=== PATIENT | female | born 1960 | race Caucasian/White ===

== ENCOUNTER 2018-04-24 05:59 | Outpatient (CLI) | payer MEDICARE, MEDICAID, SELFPAY ==
[2018-04-24 13:36] LABS: Anion Gap 1.5 mmol/L (3-11); BUN 8 mg/dL (7-18); CO2 33.5 mmol/L (21.0-32.0); CREATININE 0.78 mg/dL (0.55-1.02); Calcium 8.7 mg/dL (8.5-10.1); Chloride 101 mmol/L (98-107); Cholesterol 205 mg/dL (50-200); Glucose 326 mg/dL (70-100); HDL Cholesterol 58 mg/dL (40-60); LDL CHOLESTEROL 133 mg/dL (<100); Potassium 4.2 mmol/L (3.5-5.1); Sodium 136 mmol/L (136-145); TSH 0.78 uIU/mL (0.358-3.74); Triglyceride 122 mg/dL (30-150)
== END 2018-04-24 06:19 ==
LOC: LBO 08:05 → LOS 08:10
PROVIDERS: PCP Family Medicine; Visit Provider Family Medicine
DX: E03.9 Hypothyroidism, unspecified (principal); E11.49 Type 2 diabetes mellitus with other diabetic neurological complication; E11.65 Type 2 diabetes mellitus with hyperglycemia
CPT/HCPCS: 36415; 80048; 80061; 83721; 84443

== ENCOUNTER 2018-07-16 11:34 | Outpatient (CLI) | payer MEDICARE, MEDICAID, SELFPAY ==
--- NOTE | 2018-07-16 12:43 | DI.US_ITS ---
SYMPTOM/DIAGNOSIS: UNILATERAL SWELLING, RIGHT DUPLEX VENOUS ULTRASOUND, RIGHT LOWER EXTREMITY: 07/16 Duplex evaluation of the deep venous system was performed according to the usual protocol. The deep veins are freely compressible throughout to the level of the popliteal veins. There is normal doppler flow visible throughout and there is excellent flow augmentation with manual calf compression. CONCLUSION: No evidence of deep venous thrombosis.
== END 2018-07-16 11:54 ==
PROVIDERS: PCP Family Medicine
DX: R22.41 Localized swelling, mass and lump, right lower limb (principal); M79.89 Other specified soft tissue disorders
CPT/HCPCS: 36415; 80048; 83036; 93971

== ENCOUNTER 2018-07-16 12:48 | Outpatient (CLI) | payer MEDICARE, MEDICAID, SELFPAY ==
[2018-07-16 14:14] LABS: Hemoglobin A1C 10.5 % (4.5-6.2)
[2018-07-16 14:44] LABS: Anion Gap 5.2 mmol/L (3-11); BUN 10 mg/dL (7-18); CO2 31.8 mmol/L (21.0-32.0); CREATININE 0.72 mg/dL (0.55-1.02); Calcium 8.7 mg/dL (8.5-10.1); Chloride 99 mmol/L (98-107); Glucose 303 mg/dL (70-100); Potassium 4.2 mmol/L (3.5-5.1); Sodium 136 mmol/L (136-145)
== END 2018-07-16 13:08 ==
PROVIDERS: PCP Family Medicine; Visit Provider Family Medicine
DX: E11.9 Type 2 diabetes mellitus without complications (principal)
CPT/HCPCS: 36415; 80048; 83036; 93971

== ENCOUNTER 2018-08-05 00:44 | Outpatient (CLI) | payer MEDICARE, MEDICAID, SELFPAY ==
--- NOTE | 2018-08-05 13:13 | DI.MAMMO_ITS ---
SYMPTOM/DIAGNOSIS: SCREENING, Z12.31 MAMMOGRAMS: Mammograms were interpreted according to the usual protocol including computer analysis with CAD system, tomosynthesis and C view imaging. Comparison is made with exams from [id number]. The breasts are composed of fatty density tissue. No suspicious masses or suspicious microcalcifications are seen. There has been no significant change. IMPRESSION: Category 1A, negative mammogram. Yearly screening mammography is recommended. [facility] ASSESSMENT OF FINDINGS: Negative. Category 1. Patient will receive a letter notifying them of these results. BI-RAD category A. The breasts are almost entirely fatty.
== END 2018-08-05 01:04 ==
PROVIDERS: PCP Family Medicine; Visit Provider Family Medicine
DX: Z12.31 Encounter for screening mammogram for malignant neoplasm of breast (principal)
CPT/HCPCS: 77063; 77067

== ENCOUNTER 2018-08-05 00:51 | Outpatient (CLI) | payer MEDICARE, MEDICAID, SELFPAY ==
--- NOTE | 2018-08-05 12:16 | DI.RAD_ITS ---
SYMPTOMS/DIAGNOSIS: 6 WEEKS SEVERE PAIN/SWELLING, RIGHT LOWER LEG, M79.604 RIGHT LEG: AP and lateral projections are provided. Soft tissue prominence is noted over the leg. No focal mass is seen. The bony structures are normally mineralized. There is no evidence of an acute fracture or dislocation. There are degenerative changes involving the knee and ankle. SUMMARY: Findings consistent with edema and/or cellulitis involving the lower leg. There is no acute bony or joint abnormality.
--- NOTE | 2018-08-05 15:10 | DI.VRAD_ITS ---
EXAM: XR Right Tibia and Fibula, 2 Views EXAM DATE/TIME: 08/05/2018 12:28 PM CLINICAL HISTORY: 57 years old, female; Pain; Other: RT tib fib; Patient HX: 6 wks severe pain/swelling RT lower leg TECHNIQUE: XR Right tibia and fibula 2 views COMPARISON: US RIGHT EXTREMITY ULTRASOUND 03/05/2016 8:20 AM FINDINGS: Bones/joints: There is no evidence of acute fracture. No dislocation.There is no evidence of bone destruction, erosion or periosteal reaction. Soft tissues: No soft tissue gas densities are identified.There is no evidence of a radiopaque foreign body. Vasculature: The vasculature demonstrates diffuse marked atherosclerotic calcification. IMPRESSION: No acute bone or soft tissue abnormality. Dictated and Authenticated by: Lucy Spears MD. Ordering:RUDI Barillas MD
== END 2018-08-05 01:11 ==
PROVIDERS: PCP Family Medicine; Visit Provider Family Medicine
DX: M79.604 Pain in right leg (principal); Z12.31 Encounter for screening mammogram for malignant neoplasm of breast; R60.0 Localized edema; M79.89 Other specified soft tissue disorders; M17.11 Unilateral primary osteoarthritis, right knee
CPT/HCPCS: 77063; 77067; 73590

== ENCOUNTER 2018-10-09 00:29 | Outpatient (CLI) | payer MEDICARE, MEDICAID, SELFPAY ==
--- NOTE | 2018-10-09 14:09 | MERGE_ITS ---
*[facility]* *[facility]* [address] [place] [address] Date of study: 10/09/2018 Transthoracic Echocardiography M-mode, complete 2D, complete spectral Doppler, and color Doppler *STUDY CONCLUSIONS* Summary: 1. Left ventricle: The cavity size was normal. There was mild focal basal hypertrophy of the septum. Systolic function was normal. The estimated ejection fraction was 55-60%. Wall motion was normal; there were no regional wall motion abnormalities. 2. Aortic valve: Transvalvular velocity was minimally increased. There was very mild stenosis. Valve area (VTI): 1.8cm^2. Valve area (Vmax): 1.8cm^2. Valve area (Vmean): 1.7cm^2. 3. Right ventricle: The cavity size was normal. Wall thickness was normal. Systolic function was normal. *PATIENT PRESENTATION* Height: 162.6cm ((64in) ) S/D Pressure: 130 / 64 Weight: 99.8kg ((219.5lb) ) BSA: 2.17m^2 Test start time: 02:10 PM. Test stop time: 03:00 PM. PERFORMING Unknown ORDERING Eran Desir REFERRING Eran Desir PERFORMING [facility] [employer]PERVIS[employer] Agueda Partida *PROCEDURE DATA* Procedure information: This study was interpreted by [facility]. Pertinent images and digital data are archived for permanent storage and are available for subsequent review. No prior study was available for comparison. Study status: Routine. Transthoracic echocardiography. M-mode, complete 2D, complete spectral Doppler, and color Doppler. A Transthoracic Echocardiogram was performed. Scanning was performed from the parasternal, apical, subcostal, and suprasternal notch acoustic windows. Images were obtained using an [employer] 2000 cardiac ultrasound machine. Image quality was fair. Study completion: The patient tolerated the procedure well. History: PMH: Dyspnea on exertion *CARDIAC ANATOMY* Left ventricle: The cavity size was normal. There was mild focal basal hypertrophy of the septum. Systolic function was normal. The estimated ejection fraction was 55-60%. Wall motion was normal; there were no regional wall motion abnormalities. Aortic valve: Trileaflet; normal thickness leaflets. Mobility was not restricted. Doppler: Transvalvular velocity was minimally increased. There was very mild stenosis. There was no significant regurgitation. VTI ratio of LVOT to aortic valve: 0.73. Valve area (VTI): 1.8cm^2. Indexed valve area (VTI): 0.8cm^2/m^2. Peak velocity ratio of LVOT to aortic valve: 0.72. Valve area (Vmax): 1.8cm^2. Indexed valve area (Vmax): 0.8cm^2/m^2. Mean velocity ratio of LVOT to aortic valve: 0.66. Valve area (Vmean): 1.7cm^2. Indexed valve area (Vmean): 0.8cm^2/m^2. Mean gradient (S): 6.4mm Hg. Peak gradient (S): 13.1mm Hg. Aorta: Aortic root: The aortic root was normal in size. Ascending aorta: The ascending aorta was normal in size. Mitral valve: Structurally normal valve. Mobility was not restricted. Doppler: Transvalvular velocity was within the normal range. There was no evidence for stenosis. There was no significant regurgitation. Valve area by pressure half-time: 2.7cm^2. Indexed valve area by pressure half-time: 1.3cm^2/m^2. Peak gradient (D): 2.8mm Hg. Left atrium: The atrium was normal in size. Right ventricle: The cavity size was normal. Wall thickness was normal. Systolic function was normal. Pulmonic valve: Doppler: Transvalvular velocity was within the normal range. There was no evidence for stenosis. There was no significant regurgitation. Peak gradient (S): 5.5mm Hg. Tricuspid valve: Structurally normal valve. Doppler: Transvalvular velocity was within the normal range. There was no evidence for stenosis. There was no significant regurgitation. Pulmonary artery: Systolic pressure could not be accurately estimated. Right atrium: The atrium was normal in size. Pericardium: A prominent pericardial fat pad was present. There was no pericardial effusion. Systemic veins: Inferior vena cava: Poorly visualized. Measurements Left ventricle Value Reference LV ID, ED, PLAX 4.5 cm 3.5 - 6.0 LV ID, ES, PLAX 3.4 cm 2.1 - 4.0 LV PW thickness, ED, PLAX 1.1 cm LV end-diastolic volume, 1-p A2C 70 ml LV ejection fraction, 1-p A2C 61 % LV end-diastolic volume, 1-p A4C 119 ml LV ejection fraction, 1-p A4C 58 % LV e', lateral 0.073 m/sec LV E/e', lateral 11 LV e', medial 0.055 m/sec LV E/e', medial 15 LV e', average 0.064 m/sec LV E/e', average 13 Ventricular septum Value Reference IVS thickness, ED, PLAX 1.1 cm LVOT Value Reference LVOT ID, A-P 1.8 cm LVOT area 2.5 cm^2 LVOT peak velocity, S 1.31 m/sec LVOT mean velocity, S 0.79 m/sec LVOT VTI, S 26.1 cm LVOT peak gradient, S 6.8 mm Hg LVOT mean gradient, S 3 mm Hg Stroke volume (SV), LVOT DP 66 ml Stroke index (SV/bsa), LVOT DP 30 ml/m^2 Aortic valve Value Reference Aortic valve peak velocity, S 1.8 m/sec Aortic valve mean velocity, S 1.19 m/sec Aortic valve VTI, S 36.0 cm Aortic mean gradient, S 6.4 mm Hg Aortic peak gradient, S 13.1 mm Hg VTI ratio, LVOT/AV 0.73 Aortic valve area, VTI 1.8 cm^2 Velocity ratio, peak, LVOT/AV 0.72 Aortic valve area, peak velocity 1.8 cm^2 Velocity ratio, mean, LVOT/AV 0.66 Aortic valve area, mean velocity 1.7 cm^2 Aortic valve area/bsa, mean velocity 0.8 cm^2/m^2 Aorta Value Reference Aortic root ID, ED 3.0 cm Ascending aorta ID, A-P, S 3.2 cm Left atrium Value Reference LA ID, A-P, ES 3.9 cm LA ID/bsa, A-P 1.8 cm/m^2 <=2.2 LA area, ES, A4C 15.5 cm^2 8.8 - 23.4 LA area, ES, A2C 17 cm^2 LA volume/bsa, S 25 ml/m^2 LA volume, ES, 2-p 48 ml LA volume/bsa, ES, 2-p 22 ml/m^2 LA/aortic root ratio 1.31 Mitral valve Value Reference Mitral E-wave peak velocity 0.84 m/sec Mitral A-wave peak velocity 0.85 m/sec Mitral deceleration time (H) 278 ms 150 - 230 Mitral pressure half-time 81 ms Mitral peak gradient, D 2.8 mm Hg Mitral E/A ratio, peak 0.98 Mitral valve area, PHT, DP 2.7 cm^2 Pulmonic valve Value Reference Pulmonic peak gradient, S 5.5 mm Hg Legend: (L) and (H) gomez values outside specified reference range. I have personally reviewed the images and have reviewed and edited the reported findings. Electronically signed by Farhad Sanchez 10/11/2018 12:29
== END 2018-10-09 00:49 ==
PROVIDERS: PCP Family Medicine; Visit Provider Family Medicine
DX: R06.09 Other forms of dyspnea (principal); R60.0 Localized edema; I35.0 Nonrheumatic aortic (valve) stenosis; I10 Essential (primary) hypertension; J44.9 Chronic obstructive pulmonary disease, unspecified
CPT/HCPCS: 93306

== ENCOUNTER 2018-11-20 02:56 | Outpatient (CLI) | payer MEDICARE, MEDICAID, SELFPAY ==
[2018-11-20 13:11] LABS: Hemoglobin A1C 11.9 % (4.5-6.2)
[2018-11-20 13:15] LABS: Anion Gap 6.2 mmol/L (3-11); BUN 9 mg/dL (7-18); CO2 32.8 mmol/L (21.0-32.0); CREATININE 0.84 mg/dL (0.55-1.02); Calcium 8.7 mg/dL (8.5-10.1); Chloride 98 mmol/L (98-107); Glucose 334 mg/dL (70-100); Potassium 4.6 mmol/L (3.5-5.1); Sodium 137 mmol/L (136-145)
== END 2018-11-20 03:16 ==
PROVIDERS: PCP Family Medicine; Visit Provider Family Medicine
DX: I10 Essential (primary) hypertension (principal); R60.9 Edema, unspecified
CPT/HCPCS: 36415; 80048; 83036

== ENCOUNTER 2018-12-14 21:12 | Emergency (ER) | payer MEDICARE, MEDICAID, SELFPAY ==
[2018-12-14 21:20] VITALS: BP 189/73; PULSE 84; RESP 16; TEMP 36.8; O2SAT 89
--- NOTE | 2018-12-14 21:27 | W.ED.GENAD ---
Discharge Plan Disposition Patient Disposition: HOME Condition: Stable Discharge Details Chief Complaint: Abd Prob Clinical Impression: Constipation Primary Care Provider: Eran Desir ED Provider: Evelio Lomas Home Meds and New Rx's Prescriptions: New Fleet Enema 19-7 gram/118 mL enema 197 ml NH TID PRN PRN (Reason: constipation) Qty: 3192 RF: 0 No Action fluconazole [Diflucan] 150 mg tablet 150 mg PO ONCE Qty: 1 RF: 1 hydrocodone-homatropine 5-1.5 mg/5 mL syrup See Rx Instructions PO Q6H MDD 10 ml PRN (Reason: cough) Qty: 473 RF: 0 oxycodone-acetaminophen 10-325 mg tablet 2 tab PO Q6H PRN MDD 8 tabs Qty: 208 RF: 0 levofloxacin 500 mg tablet 500 mg PO DAILY Qty: 14 RF: 0 Novolog Flexpen U-100 Insulin 100 unit/mL insulin pen 15 unit Sub-Q AC Qty: 3 RF: 0 Basaglar KwikPen U-100 Insulin 100 unit/mL (3 mL) insulin pen 42 unit subcut BID Qty: 6 RF: 5 furosemide 40 mg tablet 40 mg PO DAILY Qty: 90 RF: 3 ipratropium-albuterol [DuoNeb] 3 ML solution for nebulization 3 ml Inhalation QID PRNRF: 0 Futuro Restoring Medium 1 EACH misc 1 ea Miscellaneous DAILY Qty: 4 RF: 0 mupirocin 22 GM ointment Topical BID Qty: 22 RF: 3 blood-glucose meter [OneTouch Ultra2] 1 EACH kit 1 ea Miscellaneous QID Qty: 1 RF: 0 nystatin 1 EACH powder 1 tsp PO QID Qty: 120 RF: 1 fluticasone propion-salmeterol [Advair Diskus] 1 EACH blister with device 1 puff Inhalation BID Qty: 3 RF: 4 levothyroxine [Synthroid] 200 MCG tablet 200 mcg PO DAILY Qty: 90 RF: 3 losartan 100 MG tablet 100 mg PO DAILY Qty: 90 RF: 4 pen needle, diabetic [BD Ultra-Fine Mimi Pen Needle] 1 EACH needle 1 ea Miscellaneous QID Qty: 200 RF: 5 Metoprolol Succinate [Toprol Xl] 100 MG TAB.ER.24H 100 mg PO DAILY Qty: 90 RF: 4 ONETOUCH ULTRA TEST STRIPS 1 EACH strip 1 ea Miscellaneous QID Qty: 200 RF: 4 montelukast [Singulair] 10 MG tablet 10 mg PO DAILY Qty: 90 RF: 4 ondansetron HCl 4 MG tablet 4 mg PO Q8H PRN Qty: 12 RF: 3 cimetidine 200 MG tablet 400 mg PO BID Qty: 180 RF: 3 nystatin (bulk) 1 EACH powder Topical QID Qty: 60 RF: 2 Spiriva with HandiHaler 18 mcg capsule, w/inhalation device 1 cap IH DAILY Qty: 90 RF: 4 levalbuterol tartrate [Xopenex HFA] 45 mcg/actuation HFA aerosol inhaler 1 puff Inhalation Q2H PRN (Reason: shortness of breath or wheezing) Qty: 2 RF: 4 Discharge Instructions Instructions: Constipation (ED) Medical Decision Making 58 yo female on home o2 and is on oral abx for a pna per pt and feels better with regards to her repsiratons, comes in because she cant have a bm. She has been constipated for quite some time and today knows she is impacted so came here. She has no abdominal tenderness or distention on exam so doubt sbo. will attempt disimpaction and reassess I disimpacted a large amount of hard stool, pt feels better. Offered an enema here but wants to do this at home. Return precautions given Differential Diagnosis impaction, sbo, constipation HPI General Mode of arrival: ambulatory. Date/Time Provider Initiated Documentation: 12/14/18 21:26. Limitations to Documentation: no limitations. Information obtained by: patient. History of Present Illness 58 year old F presents to the emergency department with the chief complaint of impacted stool, Patient started experiencing this day(s) (1) and it has been constant. No relieving factors improve symptom(s), No exacerbating factors reported . Patient did receive the following treatments prior to arrival, none Related Data Home Medications Medication Instructions Recorded Confirmed ipratropium-albuterol [DuoNeb] 3 ml INHALATION QID PRN 10/22/12 12/11/18 Futuro Restoring Medium #4 ea 07/09/16 12/11/18 mupirocin 0 TOPICAL BID #22 g 01/19/17 04/26/19 blood-glucose meter [Onetouch #1 kit 10/20/17 12/11/18 Ultra2] nystatin 1 tsp PO QID #120 ml 11/10/17 12/11/18 fluticasone propion-salmeterol 1 puff INHALATION BID #3 ea 12/05/17 12/11/18 [Advair 500/50 Diskus] levothyroxine [Synthroid] 200 mcg PO DAILY #90 tab-cap 12/05/17 12/11/18 losartan 100 mg PO DAILY #90 tab-cap 12/05/17 12/11/18 pen needle, diabetic [Bd #200 ea 12/05/17 12/11/18 Ultra-Fine Pen Needle] montelukast [Singulair] 10 mg PO DAILY #90 tab-cap 03/09/18 12/11/18 cimetidine 400 mg PO BID #180 tab 04/10/18 12/11/18 nystatin (bulk) 0 TOPICAL QID #60 g 04/10/18 12/11/18 ondansetron HCl 4 mg PO Q8H PRN #12 tab-cap 04/10/18 12/11/18 tiotropium bromide 18 mcg capsule 1 cap IH DAILY #90 inh 04/28/18 12/11/18 with inhalation device insulin aspart U- 100 100 unit/mL 15 unit SUB-Q AC #3 box 08/28/18 12/11/18 subcutaneous pen insulin glargine (U-100) 100 42 unit SUBCUT BID #6 ml 08/28/18 12/11/18 unit/mL (3 mL) subcutaneous pen furosemide 40 mg tablet 40 mg PO DAILY #90 tab 11/19/18 12/11/18 levalbuterol HFA 45 mcg/actuation 1 puff INHALATION Q2H PRN #2 device 11/24/18 12/11/18 aerosol inhaler fluconazole 150 mg tablet 150 mg PO ONCE #1 tab 12/04/18 12/11/18 hydrocodone-homatropine 5 mg-1.5 See Rx Instructions PO Q6H PRN 12/04/18 12/11/18 mg/5 mL oral syrup #473 ml MDD 10 ml levofloxacin 500 mg tablet 500 mg PO DAILY #14 tab 12/11/18 12/11/18 oxycodone-acetaminophen 10 mg-325 2 tab PO Q6H PRN #208 tab-cap MDD 12/11/18 12/11/18 mg tablet 8 tabs sodium phosphates [Fleet Enema] 197 ml NH TID PRN PRN #3192 ml 12/14/18 Previous Rx's Medication Instructions Recorded blood-glucose meter [Onetouch #1 kit 10/20/17 Ultra2] nystatin 1 tsp PO QID #120 ml 11/10/17 fluticasone propion-salmeterol 1 puff INHALATION BID #3 ea 12/05/17 [Advair 500/50 Diskus] levothyroxine [Synthroid] 200 mcg PO DAILY #90 tab-cap 12/05/17 losartan 100 mg PO DAILY #90 tab-cap 12/05/17 pen needle, diabetic [Bd #200 ea 12/05/17 Ultra-Fine Pen Needle] montelukast [Singulair] 10 mg PO DAILY #90 tab-cap 03/09/18 cimetidine 400 mg PO BID #180 tab 04/10/18 ondansetron HCl 4 mg PO Q8H PRN #12 tab-cap 04/10/18 tiotropium bromide 18 mcg capsule 1 cap IH DAILY #90 inh 04/28/18 with inhalation device insulin aspart U- 100 100 unit/mL 15 unit SUB-Q AC #3 box 08/28/18 subcutaneous pen insulin glargine (U-100) 100 42 unit SUBCUT BID #6 ml 08/28/18 unit/mL (3 mL) subcutaneous pen furosemide 40 mg tablet 40 mg PO DAILY #90 tab 11/19/18 levalbuterol HFA 45 mcg/actuation 1 puff INHALATION Q2H PRN #2 device 11/24/18 aerosol inhaler fluconazole 150 mg tablet 150 mg PO ONCE #1 tab 12/04/18 hydrocodone-homatropine 5 mg-1.5 See Rx Instructions PO Q6H PRN 12/04/18 mg/5 mL oral syrup #473 ml MDD 10 ml levofloxacin 500 mg tablet 500 mg PO DAILY #14 tab 12/11/18 oxycodone-acetaminophen 10 mg-325 2 tab PO Q6H PRN #208 tab-cap MDD 12/11/18 mg tablet 8 tabs sodium phosphates [Fleet Enema] 197 ml NH TID PRN PRN #3192 ml 12/14/18 Allergies Allergy/AdvReac Type Severity Reaction Status Date / Time cefaclor Allergy Wheezing Verified 12/11/18 13:11 lovastatin Allergy Verified 12/11/18 13:11 shellfish derived Allergy Verified 12/11/18 13:11 budesonide [From Symbicort] AdvReac Severe Verified 12/11/18 13:11 clindamycin AdvReac Severe SWELLING, Verified 12/11/18 13:11 GI UPSET, BLOATING doxycycline AdvReac Severe Nausea, Verified 12/11/18 13:11 vomiting, diarrhea formoterol fumarate AdvReac Severe Verified 12/11/18 13:11 [From Symbicort] ibuprofen AdvReac Severe Gastro Verified 12/11/18 13:11 upset, bleeding simvastatin AdvReac Severe MYALGIAS Verified 12/11/18 13:11 gabapentin AdvReac Intermediate Drowsiness Verified 12/11/18 13:11 adhesive AdvReac Skin Rash Verified 12/11/18 13:11 cyclobenzaprine AdvReac Verified 12/11/18 13:11 sulfamethoxazole AdvReac EDEMA Verified 12/11/18 13:11 [From Bactrim] trimethoprim [From Bactrim] AdvReac EDEMA Verified 12/11/18 13:11 General Stated Complaint: Abd Prob LIVIA: 3 Review of Systems Review of Systems All systems reviewed & are unremarkable except as noted in HPI and below Constitutional Denies chills, Denies fever(s) and Denies weakness Cardiovascular Denies chest pain Gastrointestinal Denies vomiting Genitourinary Denies dysuria Musculoskeletal Denies joint swelling Integumentary/Breasts Denies rash Neurologic Denies weakness Endocrine Denies heat intolerance PFSH Medical History Fracture of left radius and ulna (Resolved) Pap smear of cervix with ASCUS, cannot exclude 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 Sister No problems noted. Brother Diabetes Heart disease Brother Diabetes Heart disease Asthma Brother No problems noted. Brother No problems noted. Grandfather Diabetes Vascular disease Grandfather Diabetes Neoplasm Grandmother Dementia Leukemia Neoplasm Grandmother CHF (congestive heart failure) Son No problems noted. Son No problems noted. 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) Exam Const General: no acute distress Orientation: alert HENMT Head: normal to inspection Ears: external ears normal General nose exam: external nose normal Mouth: moist mucous membranes Eyes General: appearance normal, both eyes and all related structures Neck Neck: normal visual inspection Resp Effort & Inspection: normal respiratory effort and able to speak in complete sentences Cardio Rate: regular rate Skin General skin exam: no rashes or lesions noted Neuro General: alert and oriented x3 Extrem General: normal to inspection Psych Mental Status: mental status grossly normal Course Vital Signs Temperature 36.8 C 12/14/18 21:20 Pulse 84 12/14/18 21:20 Respiratory Rate 16 12/14/18 21:20 Blood Pressure 189/73 H 12/14/18 21:20 Pulse Oximetry 89 L 12/14/18 21:20 Temperature 36.8 C 12/14/18 21:20 Temperature Source Temporal Artery Scan 12/14/18 21:20 Pulse 84 12/14/18 21:20 Respiratory Rate 16 12/14/18 21:20 Blood Pressure 189/73 H 12/14/18 21:20 Pulse Oximetry 89 L 12/14/18 21:20 Oxygen Delivery Method Nasal Cannula 12/14/18 21:20 Oxygen Flow Rate 3 12/14/18 21:20 Pain Level 6 12/14/18 21:20
--- NOTE | 2018-12-14 21:33 | ED.GENADUL_ITS ---
Discharge Plan Disposition Patient Disposition: HOME Condition: Stable Discharge Details Chief Complaint: Abd Prob Clinical Impression: Constipation Primary Care Provider: Eran Desir ED Provider: Evelio Lomas Home Meds and New Rx's Prescriptions: New Fleet Enema 19-7 gram/118 mL enema 197 ml [place] TID PRN PRN (Reason: constipation) Qty: 3192 RF: 0 No Action fluconazole [Diflucan] 150 mg tablet 150 mg PO ONCE Qty: 1 RF: 1 hydrocodone-homatropine 5-1.5 mg/5 mL syrup See Rx Instructions PO Q6H MDD 10 ml PRN (Reason: cough) Qty: 473 RF: 0 oxycodone-acetaminophen 10-325 mg tablet 2 tab PO Q6H PRN MDD 8 tabs Qty: 208 RF: 0 levofloxacin 500 mg tablet 500 mg PO DAILY Qty: 14 RF: 0 Novolog Flexpen U-100 Insulin 100 unit/mL insulin pen 15 unit Sub-Q AC Qty: 3 RF: 0 Basaglar KwikPen U-100 Insulin 100 unit/mL (3 mL) insulin pen 42 unit subcut BID Qty: 6 RF: 5 furosemide 40 mg tablet 40 mg PO DAILY Qty: 90 RF: 3 ipratropium-albuterol [DuoNeb] 3 ML solution for nebulization 3 ml Inhalation QID PRNRF: 0 Futuro Restoring Medium 1 EACH misc 1 ea Miscellaneous DAILY Qty: 4 RF: 0 mupirocin 22 GM ointment Topical BID Qty: 22 RF: 3 blood-glucose meter [OneTouch Ultra2] 1 EACH kit 1 ea Miscellaneous QID Qty: 1 RF: 0 nystatin 1 EACH powder 1 tsp PO QID Qty: 120 RF: 1 fluticasone propion-salmeterol [Advair Diskus] 1 EACH blister with device 1 puff Inhalation BID Qty: 3 RF: 4 levothyroxine [Synthroid] 200 MCG tablet 200 mcg PO DAILY Qty: 90 RF: 3 losartan 100 MG tablet 100 mg PO DAILY Qty: 90 RF: 4 pen needle, diabetic [BD Ultra-Fine Mimi Pen Needle] 1 EACH needle 1 ea Miscellaneous QID Qty: 200 RF: 5 Metoprolol Succinate [Toprol Xl] 100 MG TAB.ER.24H 100 mg PO DAILY Qty: 90 RF: 4 ONETOUCH ULTRA TEST STRIPS 1 EACH strip 1 ea Miscellaneous QID Qty: 200 RF: 4 montelukast [Singulair] 10 MG tablet 10 mg PO DAILY Qty: 90 RF: 4 ondansetron HCl 4 MG tablet 4 mg PO Q8H PRN Qty: 12 RF: 3 cimetidine 200 MG tablet 400 mg PO BID Qty: 180 RF: 3 nystatin (bulk) 1 EACH powder Topical QID Qty: 60 RF: 2 Spiriva with HandiHaler 18 mcg capsule, w/inhalation device 1 cap IH DAILY Qty: 90 RF: 4 levalbuterol tartrate [Xopenex HFA] 45 mcg/actuation HFA aerosol inhaler 1 puff Inhalation Q2H PRN (Reason: shortness of breath or wheezing) Qty: 2 RF: 4 Discharge Instructions Instructions: Constipation (ED) Medical Decision Making 58 yo female on home o2 and is on oral abx for a pna per pt and feels better with regards to her repsiratons, comes in because she cant have a bm. She has been constipated for quite some time and today knows she is impacted so came here. She has no abdominal tenderness or distention on exam so doubt sbo. will attempt disimpaction and reassess I disimpacted a large amount of hard stool, pt feels better. Offered an enema here but wants to do this at home. Return precautions given Differential Diagnosis impaction, sbo, constipation HPI General Mode of arrival: ambulatory . Date/Time Provider Initiated Documentation: 12/14/18 21:26 . Limitations to Documentation: no limitations . Information obtained by: patient . History of Present Illness 58 year old F p resents to the emergency department with the chief complaint of impacted stool, Patient started experiencing this day(s) (1) and it has been constant. No relieving factors improve symptom(s), No exacerbating factors reported . Patient did receive the following treatments prior to arrival, none Related Data Home Medications Medication Instructions Recorded Confirmed ipratropium-albuterol [DuoNeb] 3 ml INHALATION QID PRN 10/22/12 12/11/18 Futuro Restoring Medium #4 ea 07/09/16 12/11/18 mupirocin 0 TOPICAL BID #22 g 09/05/16 12/11/18 blood-glucose meter [Onetouch #1 kit 10/20/17 12/11/18 Ultra2] nystatin 1 tsp PO QID #120 ml 11/10/17 12/11/18 fluticasone propion-salmeterol 1 puff INHALATION BID #3 ea 12/05/17 12/11/18 [Advair 500/50 Diskus] levothyroxine [Synthroid] 200 mcg PO DAILY #90 tab-cap 12/05/17 12/11/18 losartan 100 mg PO DAILY #90 tab-cap 12/05/17 12/11/18 pen needle, diabetic [Bd #200 ea 12/05/17 12/11/18 Ultra-Fine Pen Needle] montelukast [Singulair] 10 mg PO DAILY #90 tab-cap 03/09/18 12/11/18 cimetidine 400 mg PO BID #180 tab 04/10/18 12/11/18 nystatin (bulk) 0 TOPICAL QID #60 g 04/10/18 12/11/18 ondansetron HCl 4 mg PO Q8H PRN #12 tab-cap 04/10/18 12/11/18 tiotropium bromide 18 mcg capsule 1 cap IH DAILY #90 inh 04/28/18 12/11/18 with inhalation device insulin aspart U- 100 100 unit/mL 15 unit SUB-Q AC #3 box 08/28/18 12/11/18 subcutaneous pen insulin glargine (U-100) 100 42 unit SUBCUT BID #6 ml 08/28/18 12/11/18 unit/mL (3 mL) subcutaneous pen furosemide 40 mg tablet 40 mg PO DAILY #90 tab 11/19/18 12/11/18 levalbuterol HFA 45 mcg/actuation 1 puff INHALATION Q2H PRN #2 device 11/24/18 12/11/18 aerosol inhaler fluconazole 150 mg tablet 150 mg PO ONCE #1 tab 12/04/18 12/11/18 hydrocodone-homatropine 5 mg-1.5 See Rx Instructions PO Q6H PRN 12/04/18 12/11/18 mg/5 mL oral syrup #473 ml MDD 10 ml levofloxacin 500 mg tablet 500 mg PO DAILY #14 tab 12/11/18 12/11/18 oxycodone-acetaminophen 10 mg-325 2 tab PO Q6H PRN #208 tab-cap MDD 12/11/18 12/11/18 mg tablet 8 tabs sodium phosphates [Fleet Enema] 197 ml [place] TID PRN PRN #3192 ml 12/14/18 Previous Rx's Medication Instructions Recorded blood-glucose meter [Onetouch #1 kit 10/20/17 Ultra2] nystatin 1 tsp PO QID #120 ml 11/10/17 fluticasone propion-salmeterol 1 puff INHALATION BID #3 ea 12/05/17 [Advair 500/50 Diskus] levothyroxine [Synthroid] 200 mcg PO DAILY #90 tab-cap 12/05/17 losartan 100 mg PO DAILY #90 tab-cap 12/05/17 pen needle, diabetic [Bd #200 ea 12/05/17 Ultra-Fine Pen Needle] montelukast [Singulair] 10 mg PO DAILY #90 tab-cap 03/09/18 cimetidine 400 mg PO BID #180 tab 04/10/18 ondansetron HCl 4 mg PO Q8H PRN #12 tab-cap 04/10/18 tiotropium bromide 18 mcg capsule 1 cap IH DAILY #90 inh 04/28/18 with inhalation device insulin aspart U- 100 100 unit/mL 15 unit SUB-Q AC #3 box 08/28/18 subcutaneous pen insulin glargine (U-100) 100 42 unit SUBCUT BID #6 ml 08/28/18 unit/mL (3 mL) subcutaneous pen furosemide 40 mg tablet 40 mg PO DAILY #90 tab 11/19/18 levalbuterol HFA 45 mcg/actuation 1 puff INHALATION Q2H PRN #2 device 11/24/18 aerosol inhaler fluconazole 150 mg tablet 150 mg PO ONCE #1 tab 12/04/18 hydrocodone-homatropine 5 mg-1.5 See Rx Instructions PO Q6H PRN 12/04/18 mg/5 mL oral syrup #473 ml MDD 10 ml levofloxacin 500 mg tablet 500 mg PO DAILY #14 tab 12/11/18 oxycodone-acetaminophen 10 mg-325 2 tab PO Q6H PRN #208 tab-cap MDD 12/11/18 mg tablet 8 tabs sodium phosphates [Fleet Enema] 197 ml [place] TID PRN PRN #3192 ml 12/14/18 Allergies Allergy/AdvReac Type Severity Reaction Status Date / Time cefaclor Allergy Wheezing Verified 12/11/18 13:11 lovastatin Allergy Verified 12/11/18 13:11 shellfish derived Allergy Verified 12/11/18 13:11 budesonide [From Symbicort] AdvReac Severe Verified 12/11/18 13:11 clindamycin AdvReac Severe SWELLING, Verified 12/11/18 13:11 GI UPSET, BLOATING doxycycline AdvReac Severe Nausea, Verified 12/11/18 13:11 vomiting, diarrhea formoterol fumarate AdvReac Severe Verified 12/11/18 13:11 [From Symbicort] ibuprofen AdvReac Severe Gastro Verified 12/11/18 13:11 upset, bleeding simvastatin AdvReac Severe MYALGIAS Verified 12/11/18 13:11 gabapentin AdvReac Intermediate Drowsiness Verified 12/11/18 13:11 adhesive AdvReac Skin Rash Verified 12/11/18 13:11 cyclobenzaprine AdvReac Verified 12/11/18 13:11 sulfamethoxazole AdvReac EDEMA Verified 12/11/18 13:11 [From Bactrim] trimethoprim [From Bactrim] AdvReac EDEMA Verified 12/11/18 13:11 General Stated Complaint: Abd Prob LIVIA: 3 Review of Systems Review of Systems All systems reviewed & are unremarkable except as noted in HPI and below Constitutional Denies chills, Denies fever(s) and Denies weakness Cardiovascular Denies chest pain Gastrointestinal Denies vomiting Genitourinary Denies dysuria Musculoskeletal Denies joint swelling Integumentary/Breasts Denies rash Neurologic Denies weakness Endocrine Denies heat intolerance PFSH Medical History Fracture of left radius and ulna (Resolved) Pap smear of cervix with ASCUS, cannot exclude 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 Sister No problems noted. Brother Diabetes Heart disease Brother Diabetes Heart disease Asthma Brother No problems noted. Brother No problems noted. Grandfather Diabetes Vascular disease Grandfather Diabetes Neoplasm Grandmother Dementia Leukemia Neoplasm Grandmother CHF (congestive heart failure) Son No problems noted. Son No problems noted. 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) Exam Const General: no acute distress Orientation: alert HENMT Head: normal to inspection Ears: external ears normal General nose exam: external nose normal Mouth: moist mucous membranes Eyes General: appearance normal, both eyes and all related structures Neck Neck: normal visual inspection Resp Effort & Inspection: normal respiratory effort and able to speak in complete sentences Cardio Rate: regular rate Skin General skin exam: no rashes or lesions noted Neuro General: alert and oriented x3 Extrem General: normal to inspection Psych Mental Status: mental status grossly normal Course Vital Signs Temperature 36.8 C 12/14/18 21:20 Pulse 84 12/14/18 21:20 Respiratory Rate 16 12/14/18 21:20 Blood Pressure 189/73 H 12/14/18 21:20 Pulse Oximetry 89 L 12/14/18 21:20 Temperature 36.8 C 12/14/18 21:20 Temperature Source Temporal Artery Scan 12/14/18 21:20 Pulse 84 12/14/18 21:20 Respiratory Rate 16 12/14/18 21:20 Blood Pressure 189/73 H 12/14/18 21:20 Pulse Oximetry 89 L 12/14/18 21:20 Oxygen Delivery Method Nasal Cannula 12/14/18 21:20 Oxygen Flow Rate 3 12/14/18 21:20 Pain Level 6 12/14/18 21:20
== END 2018-12-14 21:50 | disposition home or self-care (01) ==
PROVIDERS: Emergency Provider Emergency Medicine; PCP Family Medicine
DX: K59.00 Constipation, unspecified (principal); E11.9 Type 2 diabetes mellitus without complications; Z79.4 Long term (current) use of insulin; J44.9 Chronic obstructive pulmonary disease, unspecified; J45.909 Unspecified asthma, uncomplicated; Z99.81 Dependence on supplemental oxygen; Z87.891 Personal history of nicotine dependence; I10 Essential (primary) hypertension
CPT/HCPCS: 99283

== ENCOUNTER 2019-01-29 12:45 | Inpatient (IN) | payer MEDICARE, MEDICAID, SELFPAY ==
[2019-01-29] VITALS (14 sets, daily range): BP systolic 105–160; BP diastolic 53–80; PULSE 61–79; RESP 14–23; TEMP 36.7–37.3; O2SAT 84–94
[2019-01-29 13:26] LABS: Bilirubin Negative (Negative); Blood Trace-lysed (Negative); Clarity Clear; Glucose 100 mg/dL (Negative); Ketones Negative (Negative); Leukocyte Esterase Negative (Negative); Nitrite Negative (Negative); Specific Gravity 1.015 (1.005-1.025); Urobilinogen 0.2 EU/dL (Up TO 0.2)
[2019-01-29 13:29] LABS: Bacteria Few HPF (Negative); C & S Indicated? No; Casts Negative LPF (Negative); Crystals Negative HPF (Negative); Epithelial Cells Many HPF (Negative); Mucus Negative (Negative); WBC Negative HPF (0-5)
[2019-01-29 13:33] LABS: HCO3 (Venous) 33 mmol/L (22-28); O2 Sat (Venous) 68 % (70-80); TCO2 (Venous) 30 mmol/L (22-29); pCO2 (Venous) 49 mm/Hg (34-47); pH (Venous) 7.44 (7.32-7.43); pO2 (Venous) 35 mm/Hg (28-44)
[2019-01-29 13:36] LABS: Lactate-non-spesis 1.2 mmol/l (0.6-1.4)
[2019-01-29 13:41] LABS: Abs Immature Grans 0.02 k/cumm (0.0-0.09); Absolute Basophil Count 0.01 k/cumm (0.0-0.2); Absolute Eosinophil Count 0.09 k/cumm (0.0-0.7); Absolute Lymphocyte Count 1.31 k/cumm (1.2-3.4); Absolute Monocyte Count 0.73 k/cumm (0.11-0.7); Absolute Neutrophil Count 7.33 k/cumm (1.2-6.7); Basophils % 0.1; Eosinophils % 0.9; HCT 40.3 % (36.0-46.0); HGB 13.4 g/dL (12.0-15.5); Immature Grans % 0.2; Lymphocytes % 13.8; Mean Corp. HGB Concentration 33.3 g/dL (32.0-36.0); Mean Corpuscular Hemoglobin 28.2 pg (27.0-33.0); Mean Corpuscular Volume 84.8 fL (80-95); Mean Platelet Volume 8.6 fL (8.0-11.0); Monocytes % 7.7; Neutrophils % 77.3; Platelet Count 244 x1000/uL (130-400); RBC 4.75 m/cumm (4.00-5.20); RBC Distribution Width 13.3 % (11.7-14.6); White Blood Cell Count 9.49 k/cumm (4.4-10.8)
[2019-01-29] MEDS: Albuterol/Ipratropium 3 ML UPD VIAL UPD ×2 (13:43→18:00)
[2019-01-29 13:47] LABS: PTT Activated 21.4 sec (21.0-31.4); Prothrombin Time 9.9 sec (9.3-11.0)
--- NOTE | 2019-01-29 13:58 | ED.GENADUL_ITS ---
Discharge Plan Disposition Patient Disposition: [facility] INPATIENT Condition: Improving Discharge Details Chief Complaint: RespSymp Clinical Impression: COPD (chronic obstructive pulmonary disease), Pneumonia Primary Care Provider: Eran Desir ED Provider: Peng Murphy Home Meds and New Rx's Prescriptions: No Action Novolog Flexpen U-100 Insulin 100 unit/mL insulin pen 15 unit Sub-Q AC Qty: 3 RF: 0 Basaglar KwikPen U-100 Insulin 100 unit/mL (3 mL) insulin pen 42 unit subcut BID Qty: 6 RF: 5 furosemide 40 mg tablet 40 mg PO DAILY Qty: 90 RF: 3 prednisone 20 mg tablet 40 mg PO DAILY Qty: 14 RF: 0 oxycodone-acetaminophen 10-325 mg tablet 2 tab PO Q6H PRN MDD 8 tabs Qty: 207 RF: 0 hydrocodone-homatropine 5-1.5 mg/5 mL syrup See Rx Instructions PO Q6H MDD 10 ml PRN (Reason: cough) Qty: 300 RF: 0 ipratropium-albuterol [DuoNeb] 3 ML solution for nebulization 3 ml Inhalation QID PRNRF: 0 Futuro Restoring Medium 1 EACH misc 1 ea Miscellaneous DAILY Qty: 4 RF: 0 mupirocin 22 GM ointment Topical BID Qty: 22 RF: 3 blood-glucose meter [EyeVerifyuch Ultra2] 1 EACH kit 1 ea Miscellaneous QID Qty: 1 RF: 0 nystatin 1 EACH powder 1 tsp PO QID Qty: 120 RF: 1 fluticasone propion-salmeterol [Advair Diskus] 1 EACH blister with device 1 puff Inhalation BID Qty: 3 RF: 4 levothyroxine [Synthroid] 200 MCG tablet 200 mcg PO DAILY Qty: 90 RF: 3 losartan 100 MG tablet 100 mg PO DAILY Qty: 90 RF: 4 pen needle, diabetic [BD Ultra-Fine Mimi Pen Needle] 1 EACH needle 1 ea Miscellaneous QID Qty: 200 RF: 5 Metoprolol Succinate [Toprol Xl] 100 MG TAB.ER.24H 100 mg PO DAILY Qty: 90 RF: 4 [email or web address] ULTRA TEST STRIPS 1 EACH strip 1 ea Miscellaneous QID Qty: 200 RF: 4 montelukast [Singulair] 10 MG tablet 10 mg PO DAILY Qty: 90 RF: 4 ondansetron HCl 4 MG tablet 4 mg PO Q8H PRN Qty: 12 RF: 3 cimetidine 200 MG tablet 400 mg PO BID Qty: 180 RF: 3 nystatin (bulk) 1 EACH powder Topical QID Qty: 60 RF: 2 Spiriva with HandiHaler 18 mcg capsule, w/inhalation device 1 cap IH DAILY Qty: 90 RF: 4 levalbuterol tartrate [Xopenex HFA] 45 mcg/actuation HFA aerosol inhaler 1 puff Inhalation Q2H PRN (Reason: shortness of breath or wheezing) Qty: 2 RF: 4 Fleet Enema 19-7 gram/118 mL enema 197 ml GA TID PRN PRN (Reason: constipation) Qty: 3192 RF: 0 Medical Decision Making This is a pleasant 58-year-old female who presents for evaluation of chronic and worsening difficulty breathing over the last month or 2. She is on 3 L of home oxygen, regularly takes breathing treatments, she does have known COPD as well as diabetes. She has been on a course of Augmentin followed by Levaquin as well as steroids and has had no improvement with this. She still has a worsening productive cough, shortness of breath or saturations are in the mid to high 80s, which is definitely worse than normal. She denies any history of pulmonary embolism. Additionally she does complain of right flank pain, which she states does feel slightly similar to her previous kidney stones. Urinalysis does show mild RBCs. Differential for her symptoms includes atypical cardiac etiology, congestive heart failure, pneumonia, versus urolithiasis. We will further evaluate. With her hypoxemia I do feel that she would benefit from inpatient admission. With no chest pain, or chest heaviness, I feel that ACS is less likely though. EKG does show evidence of a left bundle branch block, this does appear to be new compared to prior EKGs. Negative for SCARBOSSA criterion. 2:[address] scan results have returned per Dr. Israel there is evidence of concern for patchy interstitial pneumonia, no acute process in the abdomen or pelvis. No other acute process in the lungs. With concern for an infectious etiology especially in conjunction with her symptoms of unresolving cough in spite of antibiotics, worsening shortness of breath and hypoxemia I do feel that admission antibiotics are indicated. We have started vancomycin and Zosyn regards to this. She has received breathing treatments and Solu-Medrol, and her oxygen has improved from the high 80s to the mid 90s. She is starting to feel slightly better. Urinalysis shows no signs of infection. With the patient's symptomatology I I discussed the case with , he agrees with the assessment and plan. Patient will be admitted to [facility] for further management. He has asked that I place bridging orders which I will place. I have extensively reviewed the treatment plan with the patient. I have addressed all patient concerns at this time. I have also discussed the plan with the admitting physician and they agree with the current assessment and plan and have agreed to assume responsibility for the patient. All parties demonstrate verbal understanding and agreement with our assessment and plan at this time. EKG 13: 14 Rate 79, GA 196, QTc 456, QRS 138, sinus rhythm, left bundle branch block, negative for SCARBOSSA criterion, this left bundle branch block is new compared to prior EKGs from a few years ago. No recent EKGs since then. HPI General Date/Time Provider Initiated Documentation: 01/29/19 13:10 . HPI Narrative: This is a 58-year-old female with a past medical history of lung disease, peripheral vascular disease, hypertension, diabetes, COPD, who presents today for evaluation of difficulty breathing. The patient has been managed by her primary care provider on an outpatient basis for the last month or so for this unremitting cough which is gradually been worsening. She is normally on 3 L of baseline oxygen. She was on a full course of Augmentin, followed by full course of Levaquin roughly 2 weeks ago, she completed both of these without any significant improvement of her symptoms. She is continued to have notable shortness of breath, productivity for her cough, and difficulty breathing. Her productivity has worsened in regards to the cough. She denies any chest pain or chest tightness. She denies any history of arm neck or shoulder pain. She denies any chest heaviness. She denies any history of PE, or ACS. In spite of her 3 L of oxygen over the last few weeks she has been notably requiring increased demand, with her O2 sats being in the 80s recently. Her PCP did contact us today and recommended that she come in for admission for further management. Patient also does admit to some mild right flank sided flank pain that occurred after she had contrast at [facility]. She states that it feels similar to previous kidney stones. She denies any akila hematuria, dysuria, or fever or chills. She has no other complaints at this time. No other modifying factors. Of note she is also been on steroids but it is been 2 weeks since she was last on this. Related Data Home Medications Medication Instructions Recorded Confirmed ipratropium-albuterol [DuoNeb] 3 ml INHALATION QID PRN 10/22/12 01/29/19 Futuro Restoring Medium #4 ea 07/09/16 01/29/19 mupirocin 0 TOPICAL BID #22 g 09/05/16 01/29/19 blood-glucose meter [Onetouch #1 kit 10/20/17 01/29/19 Ultra2] nystatin 1 tsp PO QID #120 ml 11/10/17 01/29/19 fluticasone propion-salmeterol 1 puff INHALATION BID #3 ea 12/05/17 01/29/19 [Advair 500/50 Diskus] levothyroxine [Synthroid] 200 mcg PO DAILY #90 tab-cap 12/05/17 01/29/19 losartan 100 mg PO DAILY #90 tab-cap 12/05/17 01/29/19 pen needle, diabetic [Bd #200 ea 12/05/17 01/29/19 Ultra-Fine Pen Needle] montelukast [Singulair] 10 mg PO DAILY #90 tab-cap 03/09/18 01/29/19 cimetidine 400 mg PO BID #180 tab 04/10/18 01/29/19 nystatin (bulk) 0 TOPICAL QID #60 g 04/10/18 01/29/19 ondansetron HCl 4 mg PO Q8H PRN #12 tab-cap 04/10/18 01/29/19 tiotropium bromide 18 mcg capsule 1 cap IH DAILY #90 inh 04/28/18 01/29/19 with inhalation device insulin aspart U- 100 100 unit/mL 15 unit SUB-Q AC #3 box 08/28/18 01/29/19 subcutaneous pen insulin glargine (U-100) 100 42 unit SUBCUT BID #6 ml 08/28/18 01/29/19 unit/mL (3 mL) subcutaneous pen furosemide 40 mg tablet 40 mg PO DAILY #90 tab 11/19/18 01/29/19 levalbuterol HFA 45 mcg/actuation 1 puff INHALATION Q2H PRN #2 device 11/24/18 01/29/19 aerosol inhaler sodium phosphates [Fleet Enema] 197 ml GA TID PRN PRN #3192 ml 12/14/18 01/29/19 prednisone 20 mg tablet 40 mg PO DAILY #14 tab 01/01/19 01/29/19 hydrocodone-homatropine 5 mg-1.5 See Rx Instructions PO Q6H PRN 01/29/19 01/29/19 mg/5 mL oral syrup #300 ml MDD 10 ml oxycodone-acetaminophen 10 mg-325 2 tab PO Q6H PRN #207 tab-cap MDD 01/29/19 01/29/19 mg tablet 8 tabs Previous Rx's Medication Instructions Recorded blood-glucose meter [Onetouch #1 kit 10/20/17 Ultra2] nystatin 1 tsp PO QID #120 ml 11/10/17 fluticasone propion-salmeterol 1 puff INHALATION BID #3 ea 12/05/17 [Advair 500/50 Diskus] levothyroxine [Synthroid] 200 mcg PO DAILY #90 tab-cap 12/05/17 losartan 100 mg PO DAILY #90 tab-cap 12/05/17 pen needle, diabetic [Bd #200 ea 12/05/17 Ultra-Fine Pen Needle] montelukast [Singulair] 10 mg PO DAILY #90 tab-cap 03/09/18 cimetidine 400 mg PO BID #180 tab 04/10/18 ondansetron HCl 4 mg PO Q8H PRN #12 tab-cap 04/10/18 tiotropium bromide 18 mcg capsule 1 cap IH DAILY #90 inh 04/28/18 with inhalation device insulin aspart U- 100 100 unit/mL 15 unit SUB-Q AC #3 box 08/28/18 subcutaneous pen insulin glargine (U-100) 100 42 unit SUBCUT BID #6 ml 08/28/18 unit/mL (3 mL) subcutaneous pen furosemide 40 mg tablet 40 mg PO DAILY #90 tab 11/19/18 levalbuterol HFA 45 mcg/actuation 1 puff INHALATION Q2H PRN #2 device 11/24/18 aerosol inhaler sodium phosphates [Fleet Enema] 197 ml GA TID PRN PRN #3192 ml 12/14/18 prednisone 20 mg tablet 40 mg PO DAILY #14 tab 01/01/19 hydrocodone-homatropine 5 mg-1.5 See Rx Instructions PO Q6H PRN 01/29/19 mg/5 mL oral syrup #300 ml MDD 10 ml oxycodone-acetaminophen 10 mg-325 2 tab PO Q6H PRN #207 tab-cap MDD 01/29/19 mg tablet 8 tabs Allergies Allergy/AdvReac Type Severity Reaction Status Date / Time cefaclor Allergy Wheezing Verified 01/29/19 11:09 lovastatin Allergy Verified 01/29/19 11:09 shellfish derived Allergy Verified 01/29/19 11:09 budesonide [From Symbicort] AdvReac Severe Verified 01/29/19 11:09 clindamycin AdvReac Severe SWELLING, Verified 01/29/19 11:09 GI UPSET, BLOATING doxycycline AdvReac Severe Nausea, Verified 01/29/19 11:09 vomiting, diarrhea formoterol fumarate AdvReac Severe Verified 01/29/19 11:09 [From Symbicort] ibuprofen AdvReac Severe Gastro Verified 01/29/19 11:09 upset, bleeding simvastatin AdvReac Severe MYALGIAS Verified 01/29/19 11:09 gabapentin AdvReac Intermediate Drowsiness Verified 01/29/19 11:09 adhesive AdvReac Skin Rash Verified 01/29/19 11:09 cyclobenzaprine AdvReac Verified 01/29/19 11:09 sulfamethoxazole AdvReac EDEMA Verified 01/29/19 11:09 [From Bactrim] trimethoprim [From Bactrim] AdvReac EDEMA Verified 01/29/19 11:09 General Stated Complaint: RespSymp LIVIA: 3 Review of Systems Review of Systems All systems reviewed & are unremarkable except as noted in HPI and below PFSH Medical History Age-related nuclear cataract of both eyes (Resolved 11/12/17) Fracture of left radius and ulna (Resolved) Fracture of left wrist (Resolved 05/28/16) Pap smear of cervix with ASCUS, cannot exclude HGSIL (Inactive 02/23/14) COPD with asthma Charcot's arthropathy Chronic pain Diabetic neuropathy Diabetic retinopathy Essential hypertension Hyperlipidemia Hypothyroidism Obesity (BMI 30-39.9) PVD (peripheral vascular disease) Poorly controlled type 2 diabetes mellitus Surgical History History of cervical biopsy (Resolved) History of unilateral oophorectomy (Resolved) Cervical Conization/LEEP Cervical Procedure Cholecystectomy (11/22/16) Extraction of cataract Oophrectomy, Right Social History Smoking/Tobacco Use Status: Former Tobacco Use Alcohol Intake: never Drug use: Never Substance use type: does not use Pets and animals: Yes Pets and animals: cat(s) Frequency: daily Kati/Adventist: Alevism Special kati needs: No Seatbelt use: always Do you feel safe at home: Yes Do you feel safe in your relationship?: Yes Additional Social history: Hard of hearing (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 3.ENT: Atraumatic external nose and ears. Moist MM. Neck: Symmetric, trachea midline, No thyromegaly. 4.CVS: +S1/S2, No murmurs or gallops. Peripheral pulses 2+ and equal in all extremities. Brisk capillary refill in all extremities. 5.RESP: Notable rhonchorous breath sounds, crackles throughout, notable wheezes. 6.GI: Soft, Nontender/Nondistended, No hepatosplenomegaly. No guarding or rebound. 7.MSK: Normocephalic/Atraumatic, Extremities w/o deformity or ttp No cyanosis or clubbing, Normal movement of all extremities. No calf tenderness. Trace pitting edema bilaterally. 8.Skin: Warm, Dry. No rashes or lesions. 9.Neuro: body welder II-XII grossly intact. Sensation grossly intact, no focal neurologic deficits. 10.Psych: (AAO) x3. Appropriate mood and affect Course Vital Signs Temperature 36.8 C 01/29/19 12:52 Pulse 78 01/29/19 12:52 Respiratory Rate 20 01/29/19 12:52 Blood Pressure 139/53 L 01/29/19 12:52 Pulse Oximetry 84 L 01/29/19 12:52 Temperature 36.8 C 01/29/19 12:52 Temperature Source Temporal Artery Scan 01/29/19 12:52 Pulse 78 01/29/19 12:52 Respiratory Rate 20 01/29/19 12:52 Respiratory Effort 01/29/19 12:52 Blood Pressure 139/53 L 01/29/19 12:52 Blood Pressure Position Sitting 01/29/19 12:52 Pulse Oximetry 84 L 01/29/19 12:52 Oxygen Delivery Method Room Air 01/29/19 12:52 Oxygen Flow Rate 0 01/29/19 12:52 Pain Level 8 01/29/19 12:52 Lab/Test Results Lab/Test Results: 01/29/19 13:39 Blood Blood Culture - Pending 01/29/19 13:39 Blood Blood Culture - Pending Laboratory Tests Range/Units 01/29/19 01/29/19 01/29/19 13:04 13:25 13:25 WBC (4.4-10.8) k/cumm RBC (4.00-5.20) m/cumm Hgb (12.0-15.5) g/dL Hct (36.0-46.0) % MCV (80-95) fL MCH (27.0-33.0) pg MCHC (32.0-36.0) g/dL RDW (11.7-14.6) % Plt Count (130-400) x1000/uL MPV (8.0-11.0) fL Immature Gran % Neutrophils % Lymphocytes % Monocytes % Eosinophils % Basophils % Absolute Neutrophils (1.2-6.7) k/cumm Absolute Lymphocytes (1.2-3.4) k/cumm Absolute Monocytes (0.11-0.7) k/cumm Absolute Eosinophils (0.0-0.7) k/cumm Absolute Basophils (0.0-0.2) k/cumm VBG pH (7.32-7.43) 7.44 H VBG pCO2 (34-47) mm/Hg 49 H VBG pO2 (28-44) mm/Hg 35 VBG HCO3 (22-28) mmol/L 33 H VBG Total CO2 (22-29) mmol/L 30 H VBG O2 Saturation (70-80) % 68 L VBG Base Excess (-3-3) mmol/L 9.0 H Lactate (0.6-1.4) mmol/l 1.2 Urine Color (Yellow) Yellow Urine Clarity Clear Urine pH (5-8) 7.0 Ur Specific [place] (1.005-1.025) 1.015 Urine Protein (Negative) mg/dL 100 H Urine Ketones (Negative) mg/dL Negative Urine Blood (Negative) Trace-lysed H Urine Nitrite (Negative) Negative Urine Bilirubin (Negative) Negative Urine Urobilinogen (Up TO 0.2) EU/dL 0.2 Ur Leukocyte Esterase (Negative) Negative Urine RBC (0-2) 5-10 H Urine WBC (0-5) HPF Negative Ur Epithelial Cells (Negative) HPF Many Urine Crystals (Negative) HPF Negative Urine Bacteria (Negative) HPF Few Urine Casts (Negative) LPF Negative Urine Mucus (Negative) Negative Ur Culture Indicated? No Urine Glucose (Negative) mg/dL 100 Range/Units 01/29/19 13:25 WBC (4.4-10.8) k/cumm 9.49 RBC (4.00-5.20) m/cumm 4.75 Hgb (12.0-15.5) g/dL 13.4 Hct (36.0-46.0) % 40.3 MCV (80-95) fL 84.8 MCH (27.0-33.0) pg 28.2 MCHC (32.0-36.0) g/dL 33.3 RDW (11.7-14.6) % 13.3 Plt Count (130-400) x1000/uL 244 MPV (8.0-11.0) fL 8.6 Immature Gran % 0.2 Neutrophils % 77.3 Lymphocytes % 13.8 Monocytes % 7.7 Eosinophils % 0.9 Basophils % 0.1 Absolute Neutrophils (1.2-6.7) k/cumm 7.33 H Absolute Lymphocytes (1.2-3.4) k/cumm 1.31 Absolute Monocytes (0.11-0.7) k/cumm 0.73 H Absolute Eosinophils (0.0-0.7) k/cumm 0.09 Absolute Basophils (0.0-0.2) k/cumm 0.01 VBG pH (7.32-7.43) VBG pCO2 (34-47) mm/Hg VBG pO2 (28-44) mm/Hg VBG HCO3 (22-28) mmol/L VBG Total CO2 (22-29) mmol/L VBG O2 Saturation (70-80) % VBG Base Excess (-3-3) mmol/L Lactate (0.6-1.4) mmol/l Urine Color (Yellow) Urine Clarity Urine pH (5-8) Ur Specific [place] (1.005-1.025) Urine Protein (Negative) mg/dL Urine Ketones (Negative) mg/dL Urine Blood (Negative) Urine Nitrite (Negative) Urine Bilirubin (Negative) Urine Urobilinogen (Up TO 0.2) EU/dL Ur Leukocyte Esterase (Negative) Urine RBC (0-2) Urine WBC (0-5) HPF Ur Epithelial Cells (Negative) HPF Urine Crystals (Negative) HPF Urine Bacteria (Negative) HPF Urine Casts (Negative) LPF Urine Mucus (Negative) Ur Culture Indicated? Urine Glucose (Negative) mg/dL
[2019-01-29 14:04] LABS: ALT 19 U/L (12-78); AST 12 U/L (15-37); Albumin 2.7 g/dL (3.4-5.0); Alkaline Phosphatase 97 U/L (46-116); Anion Gap 5.1 mmol/L (3-11); BUN 10 mg/dL (7-18); Bilirubin, Total 0.5 mg/dL (0.2-1.0); CO2 31.9 mmol/L (21.0-32.0); CREATININE 0.95 mg/dL (0.55-1.02); Calcium 9.1 mg/dL (8.5-10.1); Chloride 98 mmol/L (98-107); Glucose 343 mg/dL (70-100); NT-proBNP 357 pg/mL; Potassium 3.9 mmol/L (3.5-5.1); Sodium 135 mmol/L (136-145); TSH (W/Ref FT4) 4.01 uIU/mL (0.358-3.74); Total Protein 6.6 g/dL (6.4-8.2)
[2019-01-29 14:06] LABS: Troponin I < 0.02 ng/mL (0.00-0.06)
--- NOTE | 2019-01-29 14:10 | DI.CT_ITS ---
SYMPTOMS/DIAGNOSIS: SEVERE LUNG DISEASE, LOW O2, RIGHT FLANK PAIN, H/O KIDNEY STONES, INCREASED DIFFICULTY BREATHING CT SCAN OF THE CHEST, ABDOMEN AND PELVIS: Noncontrast examination. Comparison CT scan is 2015. CT SCAN OF THE ABDOMEN AND PELVIS: There is no evidence of nephrolithiasis or hydronephrosis. There are tiny calcifications seen in the renal pelvis, which appear to be vascular in nature. No ureterolithiasis is seen. No stones are seen in the urinary bladder. The reproductive organs are unremarkable. The lack of contrast does limit evaluation of the abdominal and pelvic organs. Calcifications are seen in the liver, likely reflecting granulomas. The unenhanced liver, spleen and adrenal glands are unremarkable. There is fatty atrophy of the pancreas. The patient is status post cholecystectomy. No biliary ductal dilatation is seen. The aorta is of normal caliber. No significant abdominal or pelvic adenopathy, ascites or pneumoperitoneum is seen. The bowel shows no evidence of obstruction or inflammation. Degenerative changes are seen in the spine. IMPRESSION: No evidence of an acute abdomen. No evidence of obstructive uropathy. CT SCAN OF THE CHEST: The thoracic aorta is intact and nonaneurysmal. The heart size is within normal limits. No significant pericardial effusion is seen. Coronary artery calcifications are present. Mildly enlarged lymph nodes are seen in the mediastinum. No significant pleural effusion or pneumothorax is identified. There are scattered opacities in the lungs, predominantly involving the left upper lobe and bilateral lower lobes. Moderately severe emphysematous changes are present in the lungs. The tracheobronchial tree is unremarkable. Mild bronchiectatic changes are seen in the right middle lobe and left lingula. Degenerative changes are seen in the spine. IMPRESSION: 1. Bilateral pulmonary infiltrates suspicious for multifocal pneumonia. 2. Mildly enlarged lymph nodes in the mediastinum, which are likely reactive. The findings were discussed with Dr. Murphy of the Emergency Department on the date of the examination.
[2019-01-29 14:24] LABS: FREE T4 1.31 ng/dL (0.76-1.46)
[2019-01-29] MEDS: methylPREDNISolone SUCC 125 MG VIAL IVP (14:57)
[2019-01-29] MEDS: PIPERACILLIN/TAZO 4.5 GM in Normal Saline 100 ML IVPB ×2 (15:05→22:09)
[2019-01-29] MEDS: Normal Saline Flush 10 ML SYR IVP ×4 (15:08→22:15)
--- NOTE | 2019-01-29 16:17 | W.PM.HP.N ---
Date of service: 01/29/19 Time of Service: 16:17 Assessment and Plan (1) Pneumonia: Current visit: Yes Status: Acute Has recently been treated as an outpatient with Augmentin and Levaquin as well as steroids. Continues to have shortness of breath, wheezing and productive cough. She received IV steroids and nebulizer treatments as well as IV antibiotics in the emergency department and responded well. We will continue IV vancomycin and Zosyn, IV steroids, scheduled nebulizer treatments and supplemental oxygen. Repeat labs in the morning. (2) COPD exacerbation: Current visit: Yes Status: Acute Continue home regimen. Add treatment as above. (3) Type II diabetes mellitus: Current visit: No Status: Chronic Continue home lantus 44 units at HS, 40 units am. Continue aspart per home schedule, add sliding scale. Continue to monitor blood glucose. Adjust as needed while on steroid therapy. Carb consistent diet. (4) Obstructive sleep apnea: Current visit: No Status: Chronic Continue CPAP. (5) Essential hypertension: Current visit: No Status: Chronic Continue home regimen with losartan and metoprolol. Continue to monitor blood pressure. (6) Gastroesophageal reflux disease: Current visit: No Status: Chronic Protonix for GERD and GI protection in the setting of steroid therapy. (7) Hypothyroidism: Current visit: No Status: Chronic TSH mildly elevated, Free T4 normal. Continue home dose of levothyroxine. (8) Low back pain: Current visit: No Status: Chronic Continue home regimen for chronic low back pain. Aqua K Alex for comfort. (9) DVT prophylaxis: Current visit: Yes Status: Acute Subcutaneous heparin. (10) Discharge planning issues: Current visit: Yes Status: Acute She is a full code. Will likely return home to her apartment when she is ready for discharge. This case was discussed with Dr. Patricia who is in agreement. (11) Lower extremity edema: Current visit: Yes Status: Acute She takes lasix 40 mg PO BID for lower extremity edema. She had an Echocardiogram in 09/2018 which showed LVEF 55-60% with mild aortic stenosis. Continue lasix per home dose. History of Present Illness Chief Complaint: Shortness of breath, cough, wheezing Narrative: Veena Hassan is a very pleasant 58-year-old female with a past medical history significant for COPD, former smoker, type 2 diabetes with complications including Charcot's joint disease, retinopathy,, neuropathy, severe peripheral vascular disease, gastroesophageal reflux disease, hypothyroidism, hyperlipidemia, hypertension and obstructive sleep apnea who presented to the emergency department today with reports of worsening shortness of breath, coughing and wheezing over the last couple of months. She is chronically on oxygen at home, currently at 3 L. She has been treated by her primary care provider with both Augmentin and Levaquin as well as steroid tapers and has not had improvement in her respiratory symptoms. In the emergency department, she was noted to be hypoxic with oxygen saturations in the 80s which improved with IV steroids and nebulizer treatments. She had a CT chest which showed Bilateral pulmonary infiltrates suspicious for multifocal pneumonia and Mildly enlarged lymph nodes in the mediastinum, which are likely reactive. CT abdomen and pelvis showed no evidence of an acute abdomen and no evidence of obstructive uropathy. She was afebrile. Her labs did not show leukocytosis, she had normal renal function, her blood glucose was elevated at 343, her troponin was less than 0.02, NT proBNP was 357, TSH was elevated at 4.01 but free T4 was normal at 1.31. Her EKG showed a left bundle branch block, this does appear to be new compared to prior EKGs. Negative for SCARBOSSA criterion. She recieved Vancomycin and Zosyn in the ED and was referred for admission to the med/surg floor for further evaluation and management. At the time of her admission to the floor, she reports feeling better than when she arrived in the ED. She continues to have a productive cough, she has not looked at the sputum, she is short of breath, worse with activity, she feels wheezy. She has chest discomfort with deep breathing, she feels shaky, she has been having fevers at home. She reports left lower back pain, she was concerned that this could possibly represent pain from a kidney stone, however, her CT abdomen and pelvis did not reveal nephrolithiasis or hydronephrosis. She does have chronic back pain and chronically takes oxycodone. She denies abdominal pain, nausea or vomiting. Her appetite has been up and down at home. She has been trying to drink plenty of fluids, she is not sure if she has been drinking enough fluids. She denies any dysuria or hematuria, her bowels are moving normally for her, she had a bowel movement 2 days ago. She reports lower extremity edema which is chronic and related to her venous insufficiency. Review of Systems Review of Systems All systems reviewed & are unremarkable except as noted in HPI and below PFS Medical History Age-related nuclear cataract of both eyes (Resolved 11/12/17) Fracture of left radius and ulna (Resolved) Fracture of left wrist (Resolved 05/28/16) Pap smear of cervix with ASCUS, cannot exclude HGSIL (Inactive 02/23/14) COPD with asthma Charcot's arthropathy Chronic pain Diabetic neuropathy Diabetic retinopathy Essential hypertension Hyperlipidemia Hypothyroidism Obesity (BMI 30-39.9) PVD (peripheral vascular disease) Poorly controlled type 2 diabetes mellitus Surgical History History of cervical biopsy (Resolved) History of unilateral oophorectomy (Resolved) Cervical Conization/LEEP Cervical Procedure Cholecystectomy (11/22/16) Extraction of cataract Oophrectomy, Right Family History Mother Diabetes Essential hypertension Myocardial infarction Vascular disease Asthma Father Diabetes CHF (congestive heart failure) Heart disease Parkinson disease Sister No problems noted. Sister No problems noted. Brother Diabetes Heart disease Brother Diabetes Heart disease Asthma Brother No problems noted. Brother No problems noted. Grandfather Diabetes Vascular disease Grandfather Diabetes Neoplasm Grandmother Dementia Leukemia Neoplasm Grandmother CHF (congestive heart failure) Son No problems noted. Son No problems noted. 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) Meds Home Medications Medication Instructions Recorded Confirmed Type ipratropium-albuterol [DuoNeb] 3 ml INHALATION QID PRN 10/22/12 01/29/19 History Futuro Restoring Medium #4 ea 07/09/16 01/29/19 History mupirocin 0 TOPICAL BID #22 g 09/05/16 01/29/19 History blood-glucose meter [Onetouch #1 kit 10/20/17 01/29/19 Rx Ultra2] nystatin 1 tsp PO QID #120 ml 11/10/17 01/29/19 Rx Metoprolol Succinate [Toprol Xl] 100 mg PO DAILY #90 tab-cap 12/05/17 01/29/19 Clinic Onetouch Ultra Test Strips 1 ea MISCELLANEOUS QID #200 strip 12/05/17 01/29/19 Clinic fluticasone propion-salmeterol 1 puff INHALATION BID #3 ea 12/05/17 01/29/19 Rx [Advair 500/50 Diskus] levothyroxine [Synthroid] 200 mcg PO DAILY #90 tab-cap 12/05/17 01/29/19 Rx losartan 100 mg PO DAILY #90 tab-cap 12/05/17 01/29/19 Rx pen needle, diabetic [Bd #200 ea 12/05/17 01/29/19 Rx Ultra-Fine Pen Needle] montelukast [Singulair] 10 mg PO DAILY #90 tab-cap 03/09/18 01/29/19 Rx nystatin (bulk) 0 TOPICAL QID #60 g 04/10/18 01/29/19 History ondansetron HCl 4 mg PO Q8H PRN #12 tab-cap 04/10/18 01/29/19 Rx tiotropium bromide 18 mcg capsule 1 cap IH DAILY #90 inh 04/28/18 01/29/19 Rx with inhalation device insulin aspart U- 100 100 unit/mL 15 unit SUB-Q AC #3 box 08/28/18 01/29/19 Rx subcutaneous pen levalbuterol HFA 45 mcg/actuation 1 puff INHALATION Q2H PRN #2 device 11/24/18 01/29/19 Rx aerosol inhaler sodium phosphates [Fleet Enema] 197 ml MA TID PRN PRN #3192 ml 12/14/18 01/29/19 Rx cimetidine 400 mg PO BID PRN 01/29/19 01/29/19 History furosemide 40 mg PO BID 01/29/19 01/29/19 History hydrocodone-homatropine 5 mg-1.5 See Rx Instructions PO Q6H PRN 01/29/19 01/29/19 Rx mg/5 mL oral syrup #300 ml MDD 10 ml insulin glargine [Basaglar KwikPen 44 unit SUBCUT BID 01/29/19 01/29/19 History U-100 Insulin] oxycodone-acetaminophen 10 mg-325 2 tab PO Q6H PRN #207 tab-cap MDD 01/29/19 01/29/19 Rx mg tablet 8 tabs Allergies Allergy/AdvReac Type Severity Reaction Status Date / Time cefaclor Allergy Wheezing Verified 01/29/19 11:09 lovastatin Allergy Verified 01/29/19 11:09 shellfish derived Allergy Verified 01/29/19 11:09 budesonide [From Symbicort] AdvReac Severe Verified 01/29/19 11:09 clindamycin AdvReac Severe SWELLING, Verified 01/29/19 11:09 GI UPSET, BLOATING doxycycline AdvReac Severe Nausea, Verified 01/29/19 11:09 vomiting, diarrhea formoterol fumarate AdvReac Severe Verified 01/29/19 11:09 [From Symbicort] ibuprofen AdvReac Severe Gastro Verified 01/29/19 11:09 upset, bleeding simvastatin AdvReac Severe MYALGIAS Verified 01/29/19 11:09 gabapentin AdvReac Intermediate Drowsiness Verified 01/29/19 11:09 adhesive AdvReac Skin Rash Verified 01/29/19 11:09 cyclobenzaprine AdvReac Verified 01/29/19 11:09 sulfamethoxazole AdvReac EDEMA Verified 01/29/19 11:09 [From Bactrim] trimethoprim [From Bactrim] AdvReac EDEMA Verified 01/29/19 11:09 Exam Narrative Exam Narrative: General: Awake and alert, oriented x3, sitting up in bed, in no acute distress. Appears fatigued. Answers questions appropriately, speech is clear. HEENT: Normocephalic, atraumatic, edentulous, pupils equal round, extraocular movements intact, mucous membranes moist. Neck: Supple, no JVD. Respiratory: Appears mildly tachypneic, lung sounds with expiratory wheezes throughout and rales to bilateral bases. Cardiovascular: Heart has regular rate and rhythm, non-tachycardic, no murmur appreciated. GI: Normoactive bowel sounds throughout all 4 quadrants, abdomen is soft, nontender on palpation, nondistended. Extremities: Bilateral lower extremities with trace to +1 pitting edema, lower extremities are pink and warm, unable to palpate pedal pulse. No calf swelling, warmth or pain Results Labs : 01/29/19 13:25 01/29/19 13:38 Laboratory Results - last 24 hr 01/29/19 01/29/19 01/29/19 13:04 13:25 13:25 WBC RBC Hgb Hct MCV MCH MCHC RDW Plt Count MPV Immature Gran % Neutrophils % Lymphocytes % Monocytes % Eosinophils % Basophils % Absolute Neutrophils Absolute Lymphocytes Absolute Monocytes Absolute Eosinophils Absolute Basophils PT INR APTT VBG pH 7.44 H VBG pCO2 49 H VBG pO2 35 VBG HCO3 33 H VBG Total CO2 30 H VBG O2 Saturation 68 L VBG Base Excess 9.0 H Sodium Potassium Chloride Carbon Dioxide Anion Gap BUN Creatinine Estimated GFR/1.73 m2 Glucose Lactate Calcium Total Bilirubin AST ALT Alkaline Phosphatase Troponin I Cancelled NT-Pro-B Natriuret Pep Total Protein Albumin TSH Cancelled Free T4 Urine Color Yellow Urine Clarity Clear Urine pH 7.0 Ur Specific [place] 1.015 Urine Protein 100 H Urine Ketones Negative Urine Blood Trace-lysed H Urine Nitrite Negative Urine Bilirubin Negative Urine Urobilinogen 0.2 Ur Leukocyte Esterase Negative Urine RBC 5-10 H Urine WBC Negative Ur Epithelial Cells Many Urine Crystals Negative Urine Bacteria Few Urine Casts Negative Urine Mucus Negative Ur Culture Indicated? No Urine Glucose 100 01/29/19 01/29/19 01/29/19 13:25 13:25 13:25 WBC 9.49 RBC 4.75 Hgb 13.4 Hct 40.3 MCV 84.8 MCH 28.2 MCHC 33.3 RDW 13.3 Plt Count 244 MPV 8.6 Immature Gran % 0.2 Neutrophils % 77.3 Lymphocytes % 13.8 Monocytes % 7.7 Eosinophils % 0.9 Basophils % 0.1 Absolute Neutrophils 7.33 H Absolute Lymphocytes 1.31 Absolute Monocytes 0.73 H Absolute Eosinophils 0.09 Absolute Basophils 0.01 PT INR APTT VBG pH VBG pCO2 VBG pO2 VBG HCO3 VBG Total CO2 VBG O2 Saturation VBG Base Excess Sodium Potassium Chloride Carbon Dioxide Anion Gap BUN Creatinine Estimated GFR/1.73 m2 Glucose Lactate 1.2 Calcium Total Bilirubin AST ALT Alkaline Phosphatase Troponin I NT-Pro-B Natriuret Pep Cancelled Total Protein Albumin TSH Free T4 Urine Color Urine Clarity Urine pH Ur Specific [place] Urine Protein Urine Ketones Urine Blood Urine Nitrite Urine Bilirubin Urine Urobilinogen Ur Leukocyte Esterase Urine RBC Urine WBC Ur Epithelial Cells Urine Crystals Urine Bacteria Urine Casts Urine Mucus Ur Culture Indicated? Urine Glucose 01/29/19 01/29/19 13:25 13:38 WBC RBC Hgb Hct MCV MCH MCHC RDW Plt Count MPV Immature Gran % Neutrophils % Lymphocytes % Monocytes % Eosinophils % Basophils % Absolute Neutrophils Absolute Lymphocytes Absolute Monocytes Absolute Eosinophils Absolute Basophils PT 9.9 INR 1.0 APTT 21.4 VBG pH VBG pCO2 VBG pO2 VBG HCO3 VBG Total CO2 VBG O2 Saturation VBG Base Excess Sodium 135 L Potassium 3.9 Chloride 98 Carbon Dioxide 31.9 Anion Gap 5.1 BUN 10 Creatinine 0.95 Estimated GFR/1.73 m2 >= 60.00 Glucose 343 H Lactate Calcium 9.1 Total Bilirubin 0.5 AST 12 L ALT 19 Alkaline Phosphatase 97 Troponin I < 0.02 NT-Pro-B Natriuret Pep 357 H Total Protein 6.6 Albumin 2.7 L TSH 4.01 H Free T4 1.31 Urine Color Urine Clarity Urine pH Ur Specific [place] Urine Protein Urine Ketones Urine Blood Urine Nitrite Urine Bilirubin Urine Urobilinogen Ur Leukocyte Esterase Urine RBC Urine WBC Ur Epithelial Cells Urine Crystals Urine Bacteria Urine Casts Urine Mucus Ur Culture Indicated? Urine Glucose Last Vital Signs Temp 36.8 C 01/29/19 12:52 Pulse 72 01/29/19 13:46 Resp 22 01/29/19 13:50 BP 152/63 H 01/29/19 13:46 Pulse Ox 89 L 01/29/19 13:50
[2019-01-29] MEDS: Normal Saline 500 ML IV (16:56)
[2019-01-29] MEDS: VANCOMYCIN 2,000 MG in Normal Saline 500 ML 250 MG IVPB (16:58)
[2019-01-29] MEDS: Furosemide 40 MG TAB PO (17:34)
[2019-01-29] MEDS: Pantoprazole 40 MG VIAL IVP (17:36)
[2019-01-29] MEDS: Heparin 5,000 UNITS/ML VIAL 5000 UNITS SC (17:39)
[2019-01-29] MEDS: oxyCODONE 5 mg/Acetaminophen 325 mg TAB 2 TAB PO (17:50)
[2019-01-29] MEDS: Insulin Aspart 300 UNITS/3 ML PEN SC ×2 (17:55)
[2019-01-29] MEDS: oxyCODONE 10 MG TAB PO (18:58)
[2019-01-29] MEDS: Insulin Glargine 300 UNITS/3 ML PEN 44 UNITS SC (22:14)
[2019-01-29] MEDS: methylPREDNISolone SUCC 125 MG VIAL 80 MG IVP (22:18)
[2019-01-30] VITALS (40 sets, daily range): BP systolic 113–149; BP diastolic 42–73; PULSE 59–84; RESP 1–79; TEMP 36.4–37.1; O2SAT 4–95
[2019-01-30] MEDS: oxyCODONE 10 MG TAB PO ×4 (00:05→20:37)
[2019-01-30] MEDS: oxyCODONE 5 mg/Acetaminophen 325 mg TAB 2 TAB PO ×4 (00:06→21:00)
[2019-01-30] MEDS: Albuterol/Ipratropium 3 ML UPD VIAL UPD ×5 (00:30→23:24)
[2019-01-30] MEDS: Lidocaine/Prilocaine Cream 5 GM TUBE TP (01:05)
[2019-01-30] MEDS: Heparin 5,000 UNITS/ML VIAL 5000 UNITS SC ×3 (01:30→17:13)
[2019-01-30] MEDS: Normal Saline Flush 10 ML SYR IVP (05:18)
[2019-01-30] MEDS: methylPREDNISolone SUCC 125 MG VIAL 80 MG IVP (05:18)
[2019-01-30] MEDS: VANCOMYCIN 1,250 MG in Normal Saline 250 ML 166.667 MG IVPB ×2 (05:19→21:11)
[2019-01-30] MEDS: PIPERACILLIN/TAZO 4.5 GM in Normal Saline 100 ML IVPB (06:41)
[2019-01-30] MEDS: Levothyroxine 200 MCG TAB PO (06:41)
[2019-01-30 07:08] LABS: Abs Immature Grans 0.01 k/cumm (0.0-0.09); Absolute Lymphocyte Count 0.47 k/cumm (1.2-3.4); Absolute Monocyte Count 0.06 k/cumm (0.11-0.7); Absolute Neutrophil Count 6.98 k/cumm (1.2-6.7); HCT 39.1 % (36.0-46.0); HGB 12.8 g/dL (12.0-15.5); Immature Grans % 0.1; Lymphocytes % 6.3; Mean Corp. HGB Concentration 32.7 g/dL (32.0-36.0); Mean Corpuscular Hemoglobin 27.9 pg (27.0-33.0); Mean Corpuscular Volume 85.4 fL (80-95); Mean Platelet Volume 8.8 fL (8.0-11.0); Monocytes % 0.8; Neutrophils % 92.8; Platelet Count 240 x1000/uL (130-400); RBC 4.58 m/cumm (4.00-5.20); White Blood Cell Count 7.52 k/cumm (4.4-10.8)
[2019-01-30 07:20] LABS: Anion Gap 8.5 mmol/L (3-11); BUN 17 mg/dL (7-18); CO2 29.5 mmol/L (21.0-32.0); CREATININE 1.37 mg/dL (0.55-1.02); Chloride 96 mmol/L (98-107); Estimated GFR 39.46 (mL/min/1.73m2); Magnesium 1.9 mg/dL (1.8-2.4); Sodium 134 mmol/L (136-145)
[2019-01-30 07:25] LABS: Glucose 600 mg/dL (70-100)
[2019-01-30] MEDS: Insulin Aspart 300 UNITS/3 ML PEN SC ×2 (07:30→17:14)
[2019-01-30] MEDS: Losartan 50 MG TAB 100 MG PO (07:52)
[2019-01-30] MEDS: Metoprolol CR 100 MG TABCR PO (07:52)
[2019-01-30] MEDS: Furosemide 40 MG TAB PO ×2 (07:53→17:13)
[2019-01-30] MEDS: Insulin Glargine 300 UNITS/3 ML PEN 50 UNITS SC (08:05)
--- NOTE | 2019-01-30 08:48 | W.PM.PROGNOT ---
Date of Service Date of service: 01/30/19 Time of Service: 08:49 Assessment and Plan (1) Hyperosmolar non-ketotic state in patient with type 2 diabetes mellitus: Current visit: Yes Status: Acute Likely due to steroids. Patient transferred to the ICU this morning for insulin gtt. Increase long acting insulin and decrease steroids. (2) Steroid-induced hyperglycemia: Current visit: Yes Status: Acute As above (3) Pneumonia: Current visit: Yes Status: Acute CAP; however, failed outpatient Augmentin and Levaquin as well as steroids. Improving on day 2 of IV vancomycin and Zosyn, IV steroids (tapering), scheduled nebulizer treatments and supplemental oxygen. As above (4) COPD exacerbation: Current visit: Yes Status: Acute As above (5) Type II diabetes mellitus: Current visit: No Status: Chronic As above (6) Obstructive sleep apnea: Current visit: No Status: Chronic Continue CPAP. (7) Essential hypertension: Current visit: No Status: Chronic Hold losartan due to a slight increase in Cr; continue metoprolol. Continue to monitor blood pressure. (8) Gastroesophageal reflux disease: Current visit: No Status: Chronic Protonix for GERD and GI protection in the setting of steroid therapy. (9) Hypothyroidism: Current visit: No Status: Chronic TSH mildly elevated, Free T4 normal. Continue home dose of levothyroxine. (10) Low back pain: Current visit: No Status: Chronic Continue home regimen for chronic low back pain. Aqua K Alex for comfort. (11) Lower extremity edema: Current visit: Yes Status: Acute Continue lasix 40 mg PO BID; echo from 09/2018 w/ LVEF 55-60% with mild aortic stenosis. Continue lasix per home dose. Avoiding IVF with insulin gtt. (12) DVT prophylaxis: Current visit: Yes Status: Acute Subcutaneous heparin. (13) Discharge planning issues: Current visit: Yes Status: Acute Full code. Will likely return home to her apartment when she is ready for discharge. Time spent providing critical care and documentation is 35 minutes. Subjective Interval history since last seen: Breathing better today. BG is >600 this am. Denies dizziness, chest pain, nausea, vomiting. Shortness of breath is better. Exam Narrative Exam Narrative: General: Very pleasant middle-aged female, A&Ox3, NAD, speaking fluently, sitting at the side of the bed HEENT: EOMI, MMM Heart: RRR, no m/r/g Lungs: Diminished breath sounds B; very quiet expiratory wheezing heard on R, clears with cough GI; abdomen is soft, nontender, nondistended Extremities: +1 BLE edema; chronic venous stasis R>L, trace pedal pulses Objective Objective Clinical Data: Abnormal lab results 01/29/19 01/29/19 01/29/19 Range/Units 13:04 13:25 13:25 Absolute Neutrophils 7.33 H (1.2-6.7) k/cumm Absolute Lymphocytes (1.2-3.4) k/cumm Absolute Monocytes 0.73 H (0.11-0.7) k/cumm VBG pH 7.44 H (7.32-7.43) VBG pCO2 49 H (34-47) mm/Hg VBG HCO3 33 H (22-28) mmol/L VBG Total CO2 30 H (22-29) mmol/L VBG O2 Saturation 68 L (70-80) % VBG Base Excess 9.0 H (-3-3) mmol/L Sodium (136-145) mmol/L Chloride (98-107) mmol/L Creatinine (0.55-1.02) mg/dL Glucose (70-100) mg/dL AST (15-37) U/L NT-Pro-B Natriuret Pep ( - 299) pg/mL Albumin (3.4-5.0) g/dL TSH (0.358-3.74) uIU/mL Urine Protein 100 H (Negative) mg/dL Urine Blood Trace-lysed H (Negative) Urine RBC 5-10 H (0-2) 01/29/19 01/30/19 01/30/19 Range/Units 13:38 06:40 06:40 Absolute Neutrophils 6.98 H (1.2-6.7) k/cumm Absolute Lymphocytes 0.47 L (1.2-3.4) k/cumm Absolute Monocytes 0.06 L (0.11-0.7) k/cumm VBG pH (7.32-7.43) VBG pCO2 (34-47) mm/Hg VBG HCO3 (22-28) mmol/L VBG Total CO2 (22-29) mmol/L VBG O2 Saturation (70-80) % VBG Base Excess (-3-3) mmol/L Sodium 135 L 134 L (136-145) mmol/L Chloride 96 L (98-107) mmol/L Creatinine 1.37 H (0.55-1.02) mg/dL Glucose 343 H 600 H* D (70-100) mg/dL AST 12 L (15-37) U/L NT-Pro-B Natriuret Pep 357 H ( - 299) pg/mL Albumin 2.7 L (3.4-5.0) g/dL TSH 4.01 H (0.358-3.74) uIU/mL Urine Protein (Negative) mg/dL Urine Blood (Negative) Urine RBC (0-2) Vital Signs Temperature 36.9 C 01/30/19 07:45 Temperature Source Tympanic 01/30/19 07:45 Pulse 78 01/30/19 07:48 Pulse Rhythm Regular 01/30/19 07:39 Pulse 61 01/29/19 13:50 Respiratory Rate 20 01/30/19 07:48 Respiratory Effort Non-Labored 01/30/19 07:39 Respiratory Depth Normal 01/30/19 00:10 Respiratory Pattern Normal 01/30/19 00:10 Blood Pressure 148/64 H 01/30/19 07:45 Blood Pressure Mean 86 01/29/19 13:46 Blood Pressure Position Sitting 01/29/19 12:52 Pulse Oximetry 94 L 01/30/19 07:48 Oxygen Delivery Method Nasal Cannula 01/30/19 07:45 Oxygen Flow Rate 3 01/30/19 07:45 Pain Level 7 01/30/19 07:45 Intake & Output 01/29/19 01/29/19 01/30/19 11:59 23:59 11:59 Intake Total 1080 / 1080 900.833 / 900.833 Output Total 1675 / 2275 2300 / 2300 Balance -595 / -1195 -1399.167 / -1399.167 Weight 103.1 kg 104.1 kg Intake: IV 600 / 600 350.833 / 350.833 Oral 480 / 480 550 / 550 Output: Urine 1675 / 2275 2300 / 2300 Other: Urine Color Light [place] Yellow Urine Appearance Clear Clear Urine Odor Normal None Comment Total of 2 voids emptied hat from previous void Voiding Methods Toilet Toilet Laboratory Results WBC 7.52 k/cumm (4.4-10.8) 01/30/19 06:40 RBC 4.58 m/cumm (4.00-5.20) 01/30/19 06:40 Hgb 12.8 g/dL (12.0-15.5) 01/30/19 06:40 Hct 39.1 % (36.0-46.0) 01/30/19 06:40 MCV 85.4 fL (80-95) 01/30/19 06:40 MCH 27.9 pg (27.0-33.0) 01/30/19 06:40 MCHC 32.7 g/dL (32.0-36.0) 01/30/19 06:40 RDW 13.0 % (11.7-14.6) 01/30/19 06:40 Plt Count 240 x1000/uL (130-400) 01/30/19 06:40 MPV 8.8 fL (8.0-11.0) 01/30/19 06:40 Immature Gran % 0.1 01/30/19 06:40 Neutrophils % 92.8 01/30/19 06:40 Lymphocytes % 6.3 01/30/19 06:40 Monocytes % 0.8 01/30/19 06:40 Eosinophils % 0.0 01/30/19 06:40 Basophils % 0.0 01/30/19 06:40 Absolute Neutrophils 6.98 k/cumm (1.2-6.7) H 01/30/19 06:40 Absolute Lymphocytes 0.47 k/cumm (1.2-3.4) L 01/30/19 06:40 Absolute Monocytes 0.06 k/cumm (0.11-0.7) L 01/30/19 06:40 Absolute Eosinophils 0.00 k/cumm (0.0-0.7) 01/30/19 06:40 Absolute Basophils 0.00 k/cumm (0.0-0.2) 01/30/19 06:40 PT 9.9 sec (9.3-11.0) 01/29/19 13:25 INR 1.0 (0.9-1.1) 01/29/19 13:25 APTT 21.4 sec (21.0-31.4) 01/29/19 13:25 VBG pH 7.44 (7.32-7.43) H 01/29/19 13:25 VBG pCO2 49 mm/Hg (34-47) H 01/29/19 13:25 VBG pO2 35 mm/Hg (28-44) 01/29/19 13:25 VBG HCO3 33 mmol/L (22-28) H 01/29/19 13:25 VBG Total CO2 30 mmol/L (22-29) H 01/29/19 13:25 VBG O2 Saturation 68 % (70-80) L 01/29/19 13:25 VBG Base Excess 9.0 mmol/L (-3-3) H 01/29/19 13:25 Sodium 134 mmol/L (136-145) L 01/30/19 06:40 Potassium 4.0 mmol/L (3.5-5.1) 01/30/19 06:40 Chloride 96 mmol/L (98-107) L 01/30/19 06:40 Carbon Dioxide 29.5 mmol/L (21.0-32.0) 01/30/19 06:40 Anion Gap 8.5 mmol/L (3-11) 01/30/19 06:40 BUN 17 mg/dL (7-18) D 01/30/19 06:40 Creatinine 1.37 mg/dL (0.55-1.02) H 01/30/19 06:40 Estimated GFR/1.73 m2 39.46 (mL/min/1.73m2) 01/30/19 06:40 Glucose 600 mg/dL (70-100) H* D 01/30/19 06:40 Lactate 1.2 mmol/l (0.6-1.4) 01/29/19 13:25 Calcium 9.0 mg/dL (8.5-10.1) 01/30/19 06:40 Magnesium 1.9 mg/dL (1.8-2.4) 01/30/19 06:40 Total Bilirubin 0.5 mg/dL (0.2-1.0) 01/29/19 13:38 AST 12 U/L (15-37) L 01/29/19 13:38 ALT 19 U/L (12-78) 01/29/19 13:38 Alkaline Phosphatase 97 U/L (46-116) 01/29/19 13:38 Troponin I < 0.02 ng/mL (0.00-0.06) 01/29/19 13:38 NT-Pro-B Natriuret Pep 357 pg/mL (-299) H 01/29/19 13:38 Total Protein 6.6 g/dL (6.4-8.2) 01/29/19 13:38 Albumin 2.7 g/dL (3.4-5.0) L 01/29/19 13:38 TSH 4.01 uIU/mL (0.358-3.74) H 01/29/19 13:38 Free T4 1.31 ng/dL (0.76-1.46) 01/29/19 13:38 Urine Color Yellow (Yellow) 01/29/19 13:04 Urine Clarity Clear 01/29/19 13:04 Urine pH 7.0 (5-8) 01/29/19 13:04 Ur Specific [place] 1.015 (1.005-1.025) 01/29/19 13:04 Urine Protein 100 mg/dL (Negative) H 01/29/19 13:04 Urine Ketones Negative mg/dL (Negative) 01/29/19 13:04 Urine Blood Trace-lysed (Negative) H 01/29/19 13:04 Urine Nitrite Negative (Negative) 01/29/19 13:04 Urine Bilirubin Negative (Negative) 01/29/19 13:04 Urine Urobilinogen 0.2 EU/dL (Up TO 0.2) 01/29/19 13:04 Ur Leukocyte Esterase Negative (Negative) 01/29/19 13:04 Urine RBC 5-10 (0-2) H 01/29/19 13:04 Urine WBC Negative HPF (0-5) 01/29/19 13:04 Ur Epithelial Cells Many HPF (Negative) 01/29/19 13:04 Urine Crystals Negative HPF (Negative) 01/29/19 13:04 Urine Bacteria Few HPF (Negative) 01/29/19 13:04 Urine Casts Negative LPF (Negative) 01/29/19 13:04 Urine Mucus Negative (Negative) 01/29/19 13:04 Ur Culture Indicated? No 01/29/19 13:04 Urine Glucose 100 mg/dL (Negative) 01/29/19 13:04
[2019-01-30 09:48] LABS: Glucose 673 mg/dL (70-100)
--- NOTE | 2019-01-30 10:49 | PHARADMIT ---
Admission Pharmacy Clinical Review COPD EXACERBATION AND (failed CAP) PNEUMONIA (transfer from [place] to ICU) Code Status Full Code Current Weight 104.1 kg Renally Cleared and Narrow Therapeutic Index Meds CrCl~38ml/min QTc Value / Action Taken QTC 456 BP Control, Fever BP 116/42, Afebrile, Chronic low back Pain 02/24 Electrolytes reviewed Na++ 134, K+ 4.0, Mag 1.9 DVT Prophylaxis Heparin SC Opiate Usage / Scheduled Bowel Regimen Ordered Takes Percocet 10/325 at home-2 tabs Q6h/prn Using two tabs and additional 10mg straight Oxy IR 10mg Also Tussionex for cough....MDA of amount of opiates, meds are ordered to reflect home doses. Pharmacy did not stock her home med Hycodan cough syrup, so ok'd switch to Tussionex 5ml po Q12h Plt/SCr for Heparin / Enoxaparin Plt 240 SCr 1.37 INR for Warfarin INR 1.0 H/H stable, WBC/Bands H/H 12.8/39.1 WBC 7.52 (IV steroids) Antibiotic appropriateness Zosyn 4.5/Vanco--MAKING SOME RENAL DOSE ADJUSTMENTS TODAY 01/30 failed outpt treatment w/Augmentin and Levaquin Cultures and Sensitivities Blood pending Surgical ABX d/c within 24 hr DM control / Insulin Dosing BG>600 Insulin infusion started @ 10ml/hr (weight based protocol) Lantus 50u BID Heart Failure (Check EF%) (HUGH's, B-Block, Diuretics) Lasix oral, Toprol IV to PO Switch steroids Home Meds Reviewed Pt's own Advair 500/50 (ADR to Symbicort??)-brought in Pt's own Cimetidine-not brought in, as needed Home Meds Not Ordered Comments Oxygen 4L/min w/88% SATS Duonenavi scheduled, Advair, Spiriva Respimat dc'd after one dose
[2019-01-30] MEDS: Pantoprazole 40 MG TABCR PO (11:35)
[2019-01-30 12:42] LABS: BUN 21 mg/dL (7-18); Calcium 9.2 mg/dL (8.5-10.1); Chloride 97 mmol/L (98-107); Estimated GFR 38.49 (mL/min/1.73m2); Glucose 452 mg/dL (70-100); Potassium 4.4 mmol/L (3.5-5.1); Sodium 134 mmol/L (136-145)
[2019-01-30 12:45] LABS: PHOSPHORUS 4.3 mg/dL (2.6-4.7)
--- NOTE | 2019-01-30 13:07 | NUR.NOTE ---
Nursing Note: This patient was transferred into room 222 in ICU at 0819 via W/C. Report given to NATALIO Stafford prior
[2019-01-30] MEDS: PIPERACILLIN/TAZO 3.375 GM in Normal Saline 50 ML IVPB ×2 (14:37→22:50)
[2019-01-30] MEDS: methylPREDNISolone SUCC 125 MG VIAL 60 MG IVP ×2 (14:38→22:14)
--- NOTE | 2019-01-30 14:54 | PDOC.CMIN ---
- If Service Date Differs Date of service: 01/30/19 Time of Service: 14:58 Care Management Initial Assess REASON FOR HOSPITALIZATION:: Pneumonia, COPD exacerbation PAST MEDICAL HISTORY/PAST SURGICAL HISTORY:: Medical History: Age-related nuclear cataract of both eyes (Resolved 11/12/17). Fracture of left radius and ulna (Resolved). Fracture of left wrist (Resolved 05/28/16). Pap smear of cervix with ASCUS, cannot exclude HGSIL (Inactive 02/23/14). COPD with asthma. Charcot's arthropathy. Chronic pain. Diabetic neuropathy. Diabetic retinopathy. Essential hypertension. Hyperlipidemia. Hypothyroidism. Obesity (BMI 30-39.9). PVD (peripheral vascular disease). Poorly controlled type 2 diabetes mellitus. Surgical History: History of cervical biopsy (Resolved). History of unilateral oophorectomy (Resolved). Cervical Conization/LEEP. Cervical Procedure. Cholecystectomy (11/22/16). Extraction of cataract. Oophrectomy, Right PREVIOUS FUNCTIONAL STATUS/SOCIAL/FAMILY SUPPORTS:: Veena lives alone in a first floor apartment in [place] but she states there are always people in her home. She cares for her grandchildren at times and a friend, Andre Hassan, is often with her. She has 2 sons and 2 daughters and 17 grandchildren.She is independent with ADLs and drives but states she has been sick for several months so has not gotten out as much. CURRENT FUNCTIONAL STATUS:: Veena was sitting up in bed in the ICU when visited. She was pleasant and cooperative with answering questions. Veena staes that she does not want to be in the hospital. She states her grandson's birthday is tomorrw and that everyone will be at her house and she would like to be home for that. She reported that her diabetes is out of control and that her blood sugar was over 700 this morning, necessitating a transfer to ICU. She feels this is due to the high dose steroids she is on. Veena did say she would like Meals on Wheels when she goes home but no other services. ADVANCE DIRECTIVES:: None on file at [facility] Has patient been provided with information about the portal?: No Did the patient sign up for the portal?: No CODE STATUS:: Full Code INSURANCE COVERAGE / FINANCIAL ISSUES:: Medicare. Medicaid CURRENT HOME/COMMUNITY SERVICES/EQUIPMENT:: Currently has home oxygen and uses CPAP at home. Requesting Meals on Wheels. CM sent referral to [facility]. PRIMARY CARE PHYSICIAN:: Eran Desir MD PATIENT/FAMILY EDUCATION NEEDS:: Discharge Plan, limitations, follow up plan of care and Ask Me Three. ANTICIPATED BARRIERS TO DISCHARGE:: None identified TRANSPORTATION:: via private automobile with family when ready. PLAN:: Veena is in the ICU related to markedly elevated glucose requiring an Insulin drip. She will be tramsferred back to acute level of care when blood sugar is better. She is also receiving IV antibiotics for pneumonia as well as respiratory support (oxygen, nebulizer treatments etc.) She will return home with no additional services, although a referral to [facility] for Meals on Wheels has been sent by EILEEN. CM will continue to suppport patient, family and discharge planning process.
--- NOTE | 2019-01-30 15:33 | INITIAL_ITS ---
- If Service Date Differs Date of service: 01/30/19 Time of Service: 14:58 Care Management Initial Assess REASON FOR HOSPITALIZATION:: Pneumonia, COPD exacerbation PAST MEDICAL HISTORY/PAST SURGICAL HISTORY:: Medical History: Age-related nuclear cataract of both eyes (Resolved 11/12/17). Fracture of left radius and ulna (Resolved). Fracture of left wrist (Resolved 05/28/16). Pap smear of cervix with ASCUS, cannot exclude HGSIL (Inactive 02/23/14). COPD with asthma. Charcot's arthropathy. Chronic pain. Diabetic neuropathy. Diabetic retinopathy. Essential hypertension. Hyperlipidemia. Hypothyroidism. Obesity (BMI 30-39.9). PVD (peripheral vascular disease). Poorly controlled type 2 diabetes mellitus. Surgical History: History of cervical biopsy (Resolved). History of unilateral oophorectomy (Resolved). Cervical Conization/LEEP. Cervical Procedure. Cholecystectomy (11/22/16). Extraction of cataract. Oophrectomy, Right PREVIOUS FUNCTIONAL STATUS/SOCIAL/FAMILY SUPPORTS:: Veena lives alone in a first floor apartment in [place] but she states there are always people in her home. She cares for her grandchildren at times and a friend, Andre Hassan, is often with her. She has 2 sons and 2 daughters and 17 grandchildren.She is independent with ADLs and drives but states she has been sick for several months so has not gotten out as much. CURRENT FUNCTIONAL STATUS:: Veena was sitting up in bed in the ICU when visited. She was pleasant and cooperative with answering questions. Veena staes that she does not want to be in the hospital. She states her grandson's is tomorrw and that everyone will be at her house and she would like to be home for that. She reported that her diabetes is out of control and that her blood sugar was over 700 this morning, necessitating a transfer to ICU. She feels this is due to the high dose steroids she is on. Veena did say she would like Meals on Wheels when she goes home but no other services. ADVANCE DIRECTIVES:: None on file at [facility] Has patient been provided with information about the portal?: No Did the patient sign up for the portal?: No CODE STATUS:: Full Code INSURANCE COVERAGE / FINANCIAL ISSUES:: Medicare. Medicaid CURRENT HOME/COMMUNITY SERVICES/EQUIPMENT:: Currently has home oxygen and uses CPAP at home. Requesting Meals on Wheels. CM sent referral to [facility]. PRIMARY CARE PHYSICIAN:: Eran Desir MD PATIENT/FAMILY EDUCATION NEEDS:: Discharge Plan, limitations, follow up plan of care and Ask Me Three. ANTICIPATED BARRIERS TO DISCHARGE:: None identified TRANSPORTATION:: via private automobile with family when ready. PLAN:: Veena is in the ICU related to markedly elevated glucose requiring an Insulin drip. She will be tramsferred back to acute level of care when blood sugar is better. She is also receiving IV antibiotics for pneumonia as well as respiratory support (oxygen, nebulizer treatments etc.) She will return home with no additional services, although a referral to [facility] for Meals on Wheels has been sent by EILEEN. CM will continue to suppport patient, family and discharge planning process.
[2019-01-30] MEDS: Insulin Aspart 300 UNITS/3 ML PEN 25 UNITS SC (17:13)
[2019-01-30] MEDS: Milk of Magnesia 30 ML CUP PO (20:37)
[2019-01-30] MEDS: Nystatin POWDER 15 GM JAR TP (20:37)
[2019-01-30] MEDS: Docusate Sodium 100 MG CAP PO (20:37)
[2019-01-30] MEDS: Insulin Glargine 300 UNITS/3 ML PEN 60 UNITS SC (20:38)
[2019-01-31] VITALS (16 sets, daily range): BP systolic 126–156; BP diastolic 62–69; PULSE 58–78; RESP 1–20; TEMP 36.1–37.2; O2SAT 89–96
[2019-01-31 00:27] LABS: Glucose 499 mg/dL (70-100)
[2019-01-31] MEDS: Montelukast 10 MG TAB PO (01:11)
[2019-01-31] MEDS: Insulin Aspart 100 UNITS/ML UNIT 16 UNITS SC (01:11)
[2019-01-31] MEDS: oxyCODONE 10 MG TAB PO ×4 (02:50→20:27)
[2019-01-31] MEDS: oxyCODONE 5 mg/Acetaminophen 325 mg TAB 2 TAB PO ×4 (02:50→20:27)
[2019-01-31] MEDS: Heparin 5,000 UNITS/ML VIAL 5000 UNITS SC ×3 (02:51→18:15)
[2019-01-31] MEDS: PIPERACILLIN/TAZO 3.375 GM in Normal Saline 50 ML IVPB ×3 (06:20→21:42)
[2019-01-31] MEDS: Normal Saline 500 ML IV (06:23)
[2019-01-31] MEDS: methylPREDNISolone SUCC 125 MG VIAL 60 MG IVP (06:23)
[2019-01-31] MEDS: Albuterol/Ipratropium 3 ML UPD VIAL UPD ×4 (06:23→23:14)
[2019-01-31] MEDS: Levothyroxine 200 MCG TAB PO (06:24)
[2019-01-31] MEDS: Pantoprazole 40 MG TABCR PO (07:28)
[2019-01-31] MEDS: Polyethylene Glycol 3350 17 GM PACKET PO (07:39)
[2019-01-31] MEDS: Milk of Magnesia 30 ML CUP PO (07:39)
[2019-01-31] MEDS: Metoprolol CR 100 MG TABCR PO (07:40)
[2019-01-31] MEDS: Furosemide 40 MG TAB PO ×2 (07:40→16:12)
[2019-01-31] MEDS: Docusate Sodium 100 MG CAP PO (07:40)
[2019-01-31] MEDS: Insulin Glargine 300 UNITS/3 ML PEN 60 UNITS SC (08:06)
[2019-01-31] MEDS: Insulin Aspart 300 UNITS/3 ML PEN 25 UNITS SC (08:08)
[2019-01-31] MEDS: Insulin Aspart 300 UNITS/3 ML PEN SC ×2 (08:08→11:54)
[2019-01-31 08:28] LABS: Abs Immature Grans 0.04 k/cumm (0.0-0.09); Absolute Lymphocyte Count 0.45 k/cumm (1.2-3.4); Absolute Monocyte Count 0.32 k/cumm (0.11-0.7); Absolute Neutrophil Count 11.58 k/cumm (1.2-6.7); HCT 38.9 % (36.0-46.0); HGB 12.8 g/dL (12.0-15.5); Immature Grans % 0.3; Lymphocytes % 3.6; Mean Corp. HGB Concentration 32.9 g/dL (32.0-36.0); Mean Corpuscular Hemoglobin 28.3 pg (27.0-33.0); Mean Corpuscular Volume 86.1 fL (80-95); Mean Platelet Volume 8.6 fL (8.0-11.0); Monocytes % 2.6; Neutrophils % 93.5; Platelet Count 260 x1000/uL (130-400); RBC 4.52 m/cumm (4.00-5.20); White Blood Cell Count 12.39 k/cumm (4.4-10.8)
[2019-01-31 08:35] LABS: Anion Gap 6.6 mmol/L (3-11); BUN 29 mg/dL (7-18); CO2 31.4 mmol/L (21.0-32.0); CREATININE 1.28 mg/dL (0.55-1.02); Chloride 93 mmol/L (98-107); Estimated GFR 42.68 (mL/min/1.73m2); Glucose 461 mg/dL (70-100); Magnesium 2.4 mg/dL (1.8-2.4); Sodium 131 mmol/L (136-145)
[2019-01-31] MEDS: Normal Saline Flush 10 ML SYR IVP ×5 (11:33→23:14)
[2019-01-31] MEDS: Insulin Aspart 300 UNITS/3 ML PEN 30 UNITS SC (11:53)
[2019-01-31] MEDS: VANCOMYCIN 1,250 MG in Normal Saline 250 ML 166.667 MG IVPB (15:01)
[2019-01-31] MEDS: Nystatin POWDER 15 GM JAR TP ×2 (15:20→20:26)
--- NOTE | 2019-01-31 16:11 | PGE_ITS ---
Date of Service Date of service: 01/31/19 Time of Service: 16:09 Assessment and Plan (1) Hyperosmolar non-ketotic state in patient with type 2 diabetes mellitus: Current visit: Yes Status: Resolved Transferred out of ICU and transitioned to basal bolus insulin. BG's are not ideal, but we are increasing meal time insulin and decreasing prednisone. (2) Steroid-induced hyperglycemia: Current visit: Yes Status: Acute As above (3) Pneumonia: Current visit: Yes Status: Acute CAP; however, failed outpatient Augmentin and Levaquin as well as steroids (augmentin and levofloxacin both helped, but didn't take care of the entire problem; they weren't taken together). Improving on day 3 of IV vancomycin and Zosyn, IV steroids (tapering), scheduled nebulizer treatments and supplemental oxygen. As above She does not have a nebulizer machine at home and needs one prior to discharge. We will continue IV antibiotics through tomorrow morning. Will switch to PO steroids today. Diurese as there is now also a component of fluid overload. Continue nebs. Assess exercise oximetry prior to discharge. (4) COPD exacerbation: Current visit: Yes Status: Acute As above (5) Type II diabetes mellitus: Current visit: No Status: Chronic On discharge, the patient will need to be on an adjusted basal bolus insulin with clear directions on how to taper her insulin as her steroids are being tapered. (6) Obstructive sleep apnea: Current visit: No Status: Chronic Continue CPAP. (7) Essential hypertension: Current visit: No Status: Chronic Hold losartan due to a slight increase in Cr; continue metoprolol. Continue to monitor blood pressure. (8) Gastroesophageal reflux disease: Current visit: No Status: Chronic Protonix for GERD and GI protection in the setting of steroid therapy. (9) Hypothyroidism: Current visit: No Status: Chronic TSH mildly elevated, Free T4 normal. Continue home dose of levothyroxine. (10) Low back pain: Current visit: No Status: Chronic Continue home regimen for chronic low back pain. Aqua K Alex for comfort. (11) Lower extremity edema: Current visit: Yes Status: Acute Given an additional dose of IV lasix 40 mg now. Monitor Cr. Continue lasix 40 mg PO BID; echo from 09/2018 w/ LVEF 55-60% with mild aortic stenosis. (12) DVT prophylaxis: Current visit: Yes Status: Acute Subcutaneous heparin. (13) Discharge planning issues: Current visit: Yes Status: Acute Full code. Will likely return home to her apartment when she is ready for discharge - needs a neb machine. Anticipated discharge tomorrow. Subjective Interval history since last seen: Ms Hassan feels better, but not yet at her baseline. She notes her legs are more swollen. At home she normally takes lasix 40 mg PO BID. While she wants to go home, she understands she failed 2 outpatient antibiotics, did just desaturate after lunch, and that she should really stay another day. She does not want to talk to a diabetic education while an in-patient, but would like to do so as outpatient. Denies dizziness, chest pain, nausea, vomiting. Exam Narrative Exam Narrative: General: Very pleasant middle-aged female, A&Ox3, NAD, speaking fluently, sitting at the side of the bed, looks better than yesterday, but more swollen. HEENT: EOMI, MMM Heart: RRR, no m/r/g Lungs: Diminished breath sounds B; I hear quiet bibasilar crackles at both bases, but no wheezing today GI; abdomen is soft, nontender, nondistended Extremities: +2 BLE edema, worse ; chronic venous stasis R>L Objective Objective Clinical Data: Abnormal lab results 01/30/19 01/31/19 01/31/19 Range/Units 23:55 08:15 08:15 WBC 12.39 H D (4.4-10.8) k/cumm Absolute Neutrophils 11.58 H (1.2-6.7) k/cumm Absolute Lymphocytes 0.45 L (1.2-3.4) k/cumm Sodium 131 L (136-145) mmol/L Chloride 93 L (98-107) mmol/L BUN 29 H (7-18) mg/dL Creatinine 1.28 H (0.55-1.02) mg/dL Glucose 499 H 461 H (70-100) mg/dL Vital Signs Temperature 36.1 C L 01/31/19 15:24 Temperature Source Tympanic 01/31/19 15:24 Pulse 66 01/31/19 15:24 Pulse Rhythm Regular 01/31/19 07:43 Pulse 70 01/30/19 17:20 Respiratory Rate 20 01/31/19 15:24 Respiratory Effort Non-Labored 01/31/19 07:43 Respiratory Depth Normal 01/31/19 07:43 Respiratory Pattern Normal 01/30/19 20:30 Blood Pressure 126/62 01/31/19 11:15 Blood Pressure Mean 71 01/30/19 16:01 Blood Pressure Position Supine 01/30/19 13:24 Pulse Oximetry 93 L 01/31/19 15:24 Oxygen Delivery Method Nasal Cannula 01/31/19 15:24 Oxygen Flow Rate 4 01/31/19 15:24 Pain Level 9 01/31/19 15:40 Comment 01/31/19 15:24 Intake & Output 01/30/19 01/31/19 01/31/19 23:59 11:59 23:59 Intake Total 323.70 / 1486.366 470.375 / 830.375 360 / 830.375 Output Total 450 / 3250 900 / 1800 900 / 1800 Balance -126.30 / -1763.634 -429.625 / -969.625 -540 / -969.625 Weight 105.1 kg Intake: IV 323.70 / 786.366 110.375 / 110.375 Oral 360 / 720 360 / 720 Output: Urine 450 / 3250 900 / 1800 900 / 1800 Other: Urine Color Yellow Straw Yellow Urine Appearance Clear Clear Clear Urine Odor Normal Voiding Methods Toilet Toilet Toilet Laboratory Results WBC 12.39 k/cumm (4.4-10.8) H D 01/31/19 08:15 RBC 4.52 m/cumm (4.00-5.20) 01/31/19 08:15 Hgb 12.8 g/dL (12.0-15.5) 01/31/19 08:15 Hct 38.9 % (36.0-46.0) 01/31/19 08:15 MCV 86.1 fL (80-95) 01/31/19 08:15 MCH 28.3 pg (27.0-33.0) 01/31/19 08:15 MCHC 32.9 g/dL (32.0-36.0) 01/31/19 08:15 RDW 13.0 % (11.7-14.6) 01/31/19 08:15 Plt Count 260 x1000/uL (130-400) 01/31/19 08:15 MPV 8.6 fL (8.0-11.0) 01/31/19 08:15 Immature Gran % 0.3 01/31/19 08:15 Neutrophils % 93.5 01/31/19 08:15 Lymphocytes % 3.6 01/31/19 08:15 Monocytes % 2.6 01/31/19 08:15 Eosinophils % 0.0 01/31/19 08:15 Basophils % 0.0 01/31/19 08:15 Absolute Neutrophils 11.58 k/cumm (1.2-6.7) H 01/31/19 08:15 Absolute Lymphocytes 0.45 k/cumm (1.2-3.4) L 01/31/19 08:15 Absolute Monocytes 0.32 k/cumm (0.11-0.7) 01/31/19 08:15 Absolute Eosinophils 0.00 k/cumm (0.0-0.7) 01/31/19 08:15 Absolute Basophils 0.00 k/cumm (0.0-0.2) 01/31/19 08:15 PT 9.9 sec (9.3-11.0) 01/29/19 13:25 INR 1.0 (0.9-1.1) 01/29/19 13:25 APTT 21.4 sec (21.0-31.4) 01/29/19 13:25 VBG pH 7.44 (7.32-7.43) H 01/29/19 13:25 VBG pCO2 49 mm/Hg (34-47) H 01/29/19 13:25 VBG pO2 35 mm/Hg (28-44) 01/29/19 13:25 VBG HCO3 33 mmol/L (22-28) H 01/29/19 13:25 VBG Total CO2 30 mmol/L (22-29) H 01/29/19 13:25 VBG O2 Saturation 68 % (70-80) L 01/29/19 13:25 VBG Base Excess 9.0 mmol/L (-3-3) H 01/29/19 13:25 Sodium 131 mmol/L (136-145) L 01/31/19 08:15 Potassium 4.0 mmol/L (3.5-5.1) 01/31/19 08:15 Chloride 93 mmol/L (98-107) L 01/31/19 08:15 Carbon Dioxide 31.4 mmol/L (21.0-32.0) 01/31/19 08:15 Anion Gap 6.6 mmol/L (3-11) 01/31/19 08:15 BUN 29 mg/dL (7-18) H 01/31/19 08:15 Creatinine 1.28 mg/dL (0.55-1.02) H 01/31/19 08:15 Estimated GFR/1.73 m2 42.68 (mL/min/1.73m2) 01/31/19 08:15 Glucose 461 mg/dL (70-100) H 01/31/19 08:15 Lactate 1.2 mmol/l (0.6-1.4) 01/29/19 13:25 Calcium 9.0 mg/dL (8.5-10.1) 01/31/19 08:15 Phosphorus 4.3 mg/dL (2.6-4.7) 01/30/19 12:10 Magnesium 2.4 mg/dL (1.8-2.4) 01/31/19 08:15 Total Bilirubin 0.5 mg/dL (0.2-1.0) 01/29/19 13:38 AST 12 U/L (15-37) L 01/29/19 13:38 ALT 19 U/L (12-78) 01/29/19 13:38 Alkaline Phosphatase 97 U/L (46-116) 01/29/19 13:38 Troponin I < 0.02 ng/mL (0.00-0.06) 01/29/19 13:38 NT-Pro-B Natriuret Pep 357 pg/mL (-299) H 01/29/19 13:38 Total Protein 6.6 g/dL (6.4-8.2) 01/29/19 13:38 Albumin 2.7 g/dL (3.4-5.0) L 01/29/19 13:38 TSH 4.01 uIU/mL (0.358-3.74) H 01/29/19 13:38 Free T4 1.31 ng/dL (0.76-1.46) 01/29/19 13:38 Urine Color Yellow (Yellow) 01/29/19 13:04 Urine Clarity Clear 01/29/19 13:04 Urine pH 7.0 (5-8) 01/29/19 13:04 Ur Specific [place] 1.015 (1.005-1.025) 01/29/19 13:04 Urine Protein 100 mg/dL (Negative) H 01/29/19 13:04 Urine Ketones Negative mg/dL (Negative) 01/29/19 13:04 Urine Blood Trace-lysed (Negative) H 01/29/19 13:04 Urine Nitrite Negative (Negative) 01/29/19 13:04 Urine Bilirubin Negative (Negative) 01/29/19 13:04 Urine Urobilinogen 0.2 EU/dL (Up TO 0.2) 01/29/19 13:04 Ur Leukocyte Esterase Negative (Negative) 01/29/19 13:04 Urine RBC 5-10 (0-2) H 01/29/19 13:04 Urine WBC Negative HPF (0-5) 01/29/19 13:04 Ur Epithelial Cells Many HPF (Negative) 01/29/19 13:04 Urine Crystals Negative HPF (Negative) 01/29/19 13:04 Urine Bacteria Few HPF (Negative) 01/29/19 13:04 Urine Casts Negative LPF (Negative) 01/29/19 13:04 Urine Mucus Negative (Negative) 01/29/19 13:04 Ur Culture Indicated? No 01/29/19 13:04 Urine Glucose 100 mg/dL (Negative) 01/29/19 13:04
[2019-01-31] MEDS: Furosemide 20 MG/2 ML VIAL IVP (16:53)
[2019-01-31] MEDS: Insulin Aspart 300 UNITS/3 ML PEN 20 UNITS SC (17:12)
--- NOTE | 2019-01-31 18:54 | PDOC.CMPRO ---
- If Service Date Differs Date of service: 01/31/19 Time of Service: 18:54 Care Management Progress Note S/O: CM saw Veena today while she was ambulating in the hallway. She was on her way to take a shower. She was smiling and pleasant. Although she really wante do go home today, she agreed to stay one more night. A: Veena is a 58 year old woman who was admitted to [facility] on 01/29/19 with a COPD exacerbation and pneumonia. P: Veena is receiving IV antibiotics, steroids and respiratory support. She will be discharged home with no new services. A referral to [facility] for meals on Wheels is pending.
--- NOTE | 2019-01-31 19:00 | CMPROGNOTE_ITS ---
- If Service Date Differs Date of service: 01/31/19 Time of Service: 18:54 Care Management Progress Note S/O: CM saw Veena today while she was ambulating in the hallway. She was on her way to take a shower. She was smiling and pleasant. Although she really wante do go home today, she agreed to stay one more night. A: Veena is a 58 year old woman who was admitted to [facility] on 01/29/19 with a COPD exacerbation and pneumonia. P: Veena is receiving IV antibiotics, steroids and respiratory support. She will be discharged home with no new services. A referral to [facility] for meals on Wheels is pending.
[2019-01-31] MEDS: Insulin Glargine 300 UNITS/3 ML PEN 50 UNITS SC (20:26)
[2019-01-31] MEDS: predniSONE 20 MG TAB 60 MG PO (20:27)
[2019-01-31] MEDS: Ondansetron 4 MG TAB PO (22:36)
[2019-02-01] VITALS (7 sets, daily range): BP systolic 155–176; BP diastolic 61–83; PULSE 64–85; RESP 16–24; TEMP 36.4–36.7; O2SAT 90–94
[2019-02-01] MEDS: oxyCODONE 10 MG TAB PO ×2 (02:35→08:43)
[2019-02-01] MEDS: oxyCODONE 5 mg/Acetaminophen 325 mg TAB 2 TAB PO ×2 (02:35→08:43)
[2019-02-01] MEDS: Heparin 5,000 UNITS/ML VIAL 5000 UNITS SC ×2 (02:36→09:27)
[2019-02-01] MEDS: VANCOMYCIN 1,250 MG in Normal Saline 250 ML 166.667 MG IVPB (05:08)
[2019-02-01] MEDS: PIPERACILLIN/TAZO 3.375 GM in Normal Saline 50 ML IVPB (05:14)
[2019-02-01 05:32] LABS: Abs Immature Grans 0.02 k/cumm (0.0-0.09); Absolute Eosinophil Count 0.01 k/cumm (0.0-0.7); Absolute Lymphocyte Count 0.49 k/cumm (1.2-3.4); Absolute Monocyte Count 0.49 k/cumm (0.11-0.7); Absolute Neutrophil Count 7.97 k/cumm (1.2-6.7); Eosinophils % 0.1; HCT 38.2 % (36.0-46.0); HGB 12.2 g/dL (12.0-15.5); Immature Grans % 0.2; Lymphocytes % 5.5; Mean Corp. HGB Concentration 31.9 g/dL (32.0-36.0); Mean Corpuscular Hemoglobin 27.8 pg (27.0-33.0); Mean Platelet Volume 8.6 fL (8.0-11.0); Monocytes % 5.5; Neutrophils % 88.7; Platelet Count 265 x1000/uL (130-400); RBC 4.39 m/cumm (4.00-5.20); RBC Distribution Width 13.3 % (11.7-14.6); White Blood Cell Count 8.98 k/cumm (4.4-10.8)
[2019-02-01 05:44] LABS: Anion Gap 6.4 mmol/L (3-11); BUN 34 mg/dL (7-18); CO2 32.6 mmol/L (21.0-32.0); CREATININE 1.14 mg/dL (0.55-1.02); Calcium 8.4 mg/dL (8.5-10.1); Chloride 97 mmol/L (98-107); Estimated GFR 48.79 (mL/min/1.73m2); Glucose 259 mg/dL (70-100); Magnesium 2.4 mg/dL (1.8-2.4); Sodium 136 mmol/L (136-145)
[2019-02-01 05:49] LABS: Vancomycin, Trough 15.3 ug/mL (10.0-20.0)
[2019-02-01] MEDS: Albuterol/Ipratropium 3 ML UPD VIAL UPD ×2 (06:03→11:32)
[2019-02-01] MEDS: Levothyroxine 200 MCG TAB PO (06:03)
[2019-02-01] MEDS: Normal Saline Flush 10 ML SYR IVP ×2 (07:12→09:16)
[2019-02-01] MEDS: Pantoprazole 40 MG TABCR PO (07:43)
[2019-02-01] MEDS: predniSONE 20 MG TAB 40 MG PO (07:43)
[2019-02-01] MEDS: Furosemide 40 MG TAB PO (07:44)
[2019-02-01] MEDS: Metoprolol CR 100 MG TABCR PO (07:44)
--- NOTE | 2019-02-01 08:01 | DI.VRAD_ITS ---
EXAM: XR Chest, 1 View EXAM DATE/TIME: 02/01/2019 7:53 AM CLINICAL HISTORY: 58 years old, female; Condition or disease; Other: F/u pna; Patient HX: Copd exacerbation TECHNIQUE: Imaging protocol: XR of the chest, 1 view. COMPARISON: CR PORTABLE CHEST ONE VIEW 05/15/2016 7:29 AM FINDINGS: Lungs: Emphysematous changes. Improved aeration of the left lower lobe. No evidence of pulmonary vascular congestion or pulmonary edema. Pleural space: No pneumothorax. No sizable pleural effusion. Heart/Mediastinum: No cardiomegaly. Bones/joints: Unremarkable. IMPRESSION: Improved aeration of the left lower lobe indicating decreasing pneumonia. Dictated and Authenticated by: Marty Harris MD. Ordering:BARRY Hastings MD
[2019-02-01] MEDS: Insulin Aspart 300 UNITS/3 ML PEN 20 UNITS SC ×2 (08:03→12:07)
[2019-02-01] MEDS: Insulin Aspart 300 UNITS/3 ML PEN SC ×2 (08:03→12:06)
[2019-02-01] MEDS: Insulin Glargine 300 UNITS/3 ML PEN 50 UNITS SC (08:07)
--- NOTE | 2019-02-01 08:30 | DI.RAD_ITS ---
SYMPTOMS/DIAGNOSIS: F/U PNEUMONIA PORTABLE CHEST: Comparison is made with [id number]. The heart size is normal. There are increased densities seen at the lung bases, left greater than right. The findings may be improved when compared with the previous chest CT of [id number]. No effusion is visible. IMPRESSION: Some interval improvement of previously noted lower lobe infiltrates.
[2019-02-01] MEDS: Docusate Sodium 100 MG CAP PO (10:13)
[2019-02-01] MEDS: Milk of Magnesia 30 ML CUP PO (10:13)
[2019-02-01] MEDS: Nystatin POWDER 15 GM JAR TP (10:45)
--- NOTE | 2019-02-01 10:47 | PDOC.CMDIS ---
- If Service Date Differs Date of service: 02/01/19 Time of Service: 10:47 LACE Index Scoring Tool - Questions: Length of Stay (in days): 3 Acuity (Admit via E.D.?): Yes Comorbidities: PVD, Diabetes w/o Complication, Chronic Pulmonary Disease E.D. Visits: 2 - Answers: Total Score: 13 Risk of Readmission: High Risk Care Management Discharge Reason for Hospitalization: Pneumonia, COPD exacerbation Discharge Plan: Veena is being discharged home with no additional services. She has received a new nwebulizer and a referral has been made to [facility] for Meals on Wheels. She will be transported home with her son via private automobile. Veena will follow up with her PCP and discharge plan of care. Patient/Family Education Needs: Discharge plan, limitations, follow up plan of care and Ask Me Three. Services Needed at Discharge: Home Delivered Meals
--- NOTE | 2019-02-01 11:30 | DSE_ITS ---
Date of service: 02/01/19 Time of Service: 11:51 DS: Diagnosis Discharge Diagnosis (1) COPD exacerbation: Status: Resolved Asessment and Plan: at new baseline (2) Pneumonia: Status: Resolved Asessment and Plan: Respiratory status at new baseline (3) Hyperosmolar non-ketotic state in patient with type 2 diabetes mellitus: Status: Resolved (4) Steroid-induced hyperglycemia: Status: Acute (5) Type II diabetes mellitus: Status: Chronic (6) Obstructive sleep apnea: Status: Chronic (7) Essential hypertension: Status: Chronic (8) Gastroesophageal reflux disease: Status: Chronic (9) Hypothyroidism: Status: Chronic (10) Low back pain: Status: Chronic (11) Lower extremity edema: Status: Acute (12) Acute and chronic respiratory failure with hypoxia: Status: Acute Asessment and Plan: Now at a new baseline of 4L at ambulation, 3L at rest. (13) TENNILLE (acute kidney injury): Status: Acute Discharge Plan Disposition Patient Disposition: HOME Condition: Stable Discharge Details Reason For Visit: COPD EXACERBATION AND PNEUMONIA Admit Date/Time: 01/29/19 14:41 Admit Provider: Pepe Patricia Attending Provider: Pepe Patricia Primary Care Provider: Eran Desir [facility] Course Hospital Course: Ms Hassan is a 58 year old female with PMHx of chronic hypoxic respiratory failure due to COPD, obstructive sleep apnea, normally using 3L of O2 at home prn as well as a CPAP at night, as well as chronic diastolic CHF, IDDM2, chronic pain, admitted to [facility] on 01/29/19 with acute exacerbation of COPD due to a community acquired pneumonia, which was incompletely treated by two prior different outpatient regimens (steroids in addition to first augmentin, then levofloxacin). Bother of these regimens had helped her some, but did not completely resolve her symptoms. Her CT of the chest on admission was concerning bilateral multifocal pneumonia. She was initiated on regimen of vancomycin, zosyn, IV steroids and scheduled and prn nebulizers in the ED, which was continued on the medical surgical floor with significant clinical improvement. Unfortunately, the patient did require a brief transfer to ICU on hospital day 2 for hyperosmolar hyperglycemic nonketotic state due to steroid induced hyperglycemia, with resolution thereof after the use of insulin drip with transition back to basal bolus insulin at increased doses. Her steroids were weaned and transitioned to PO. CXR done on day of discharge (day 4 of IV antibiotics) showed improvement in disease in LLL. The patient feels she is back to baseline and is able to return home today. Her ambulatory pulse ox check demonstrated that she required 4 L of O2 on ambulation; she does need O2 at 3L at rest. She is being discharged home with a nebulizer machine; rx for scheduled duonebs and prn xopenex nebs, a steroid taper and 4 more days of combination of augmentin/levofloxacin, which we feel will be sufficient. The patient did demonstrate a slight worsening of her kidney function at the time of hyperglycemia; ARB was held - it is being resumed on discharge with the e xpectation of repeat blood work in 1 week and follow up with PCP. The patient is being discharged home with 50 units of basaglar BID with instructions to return to her prior home dose once her FBG is close to 120. She is being discharged with 20 units of novolog with meals in addition to a sliding scale (2 units for every 50 points that BG is greater than 150). Her novolog regimen can return to her prior to admission regimen once she is taking 20 mg of prednisone daily. The patient verbalizes understanding of these instructions. A total of 60 minutes were spent on care and documentation of discharge plan for the patient. Home Meds and New Rx's Prescriptions: New ipratropium-albuterol 0.5 mg-3 mg(2.5 mg base)/3 mL Solution For Nebulization 3 ml UPD Q6H Qty: 180 RF: 0 Novolog Flexpen U-100 Insulin 100 unit/mL Insulin Pen See Rx Instructions .ROUTE .COMPLEX Qty: 15 RF: 0 pantoprazole 40 mg Tablet,Delayed Release (Dr/Ec) 40 mg PO DAILY@0730 Qty: 30 RF: 0 amoxicillin-pot clavulanate [Augmentin] 875-125 mg tablet 1 tab PO BID Qty: 8 RF: 0 levofloxacin 500 mg tablet 500 mg PO DAILY Qty: 4 RF: 0 prednisone 10 mg tablet See Rx Instructions .ROUTE .COMPLEX Qty: 31 RF: 0 Lactobacillus acidophilus capsule 1,000 mmu cells PO DAILY Qty: 30 RF: 0 levalbuterol HCl [Xopenex] 1.25 mg/3 mL solution for nebulization 1.25 mg IH Q2H PRN PRN (Reason: shortness of breath or wheezing) Qty: 90 RF: 0 docusate sodium 100 mg capsule 100 mg PO BID Qty: 60 RF: 0 bisacodyl [Dulcolax (bisacodyl)] 5 mg tablet,delayed release (DR/EC) 5 mg PO HS PRN PRN (Reason: constipation) Qty: 10 RF: 0 Continued oxycodone-acetaminophen 10-325 mg tablet 2 tab PO Q6H PRN MDD 8 tabs Qty: 207 RF: 0 hydrocodone-homatropine 5-1.5 mg/5 mL syrup See Rx Instructions PO Q6H MDD 10 ml PRN (Reason: cough) Qty: 300 RF: 0 mupirocin 22 GM ointment Topical BID Qty: 22 RF: 3 nystatin 1 EACH powder 1 tsp PO QID Qty: 120 RF: 1 fluticasone propion-salmeterol [Advair Diskus] 1 EACH blister with device 1 puff Inhalation BID Qty: 3 RF: 4 levothyroxine [Synthroid] 200 MCG tablet 200 mcg PO DAILY Qty: 90 RF: 3 losartan 100 MG tablet 100 mg PO DAILY Qty: 90 RF: 4 Metoprolol Succinate [Toprol Xl] 100 MG TAB.ER.24H 100 mg PO DAILY Qty: 90 RF: 4 Pathagility ULTRA TEST STRIPS 1 EACH strip 1 ea Miscellaneous QID Qty: 200 RF: 4 montelukast [Singulair] 10 MG tablet 10 mg PO DAILY Qty: 90 RF: 4 ondansetron HCl 4 MG tablet 4 mg PO Q8H PRN Qty: 12 RF: 3 nystatin (bulk) 1 EACH powder Topical QID Qty: 60 RF: 2 Spiriva with HandiHaler 18 mcg capsule, w/inhalation device 1 cap IH DAILY Qty: 90 RF: 4 levalbuterol tartrate [Xopenex HFA] 45 mcg/actuation HFA aerosol inhaler 1 puff Inhalation Q2H PRN (Reason: shortness of breath or wheezing) Qty: 2 RF: 4 furosemide 40 mg tablet 40 mg PO BID RF: 0 cimetidine 200 MG tablet 400 mg PO BID PRNRF: 0 Changed Basaglar KwikPen U-100 Insulin 100 unit/mL (3 mL) insulin pen 50 unit subcut BID Qty: 15 RF: 0 Discontinued ipratropium-albuterol [DuoNeb] 3 ML solution for nebulization 3 ml Inhalation QID PRNRF: 0 No Action Novolog Flexpen U-100 Insulin 100 unit/mL insulin pen 15 unit Sub-Q AC Qty: 3 RF: 0 Futuro Restoring Medium 1 EACH misc 1 ea Miscellaneous DAILY Qty: 4 RF: 0 blood-glucose meter [OneTouch Ultra2] 1 EACH kit 1 ea Miscellaneous QID Qty: 1 RF: 0 pen needle, diabetic [BD Ultra-Fine Mimi Pen Needle] 1 EACH needle 1 ea Miscellaneous QID Qty: 200 RF: 5 Fleet Enema 19-7 gram/118 mL enema 197 ml [place] TID PRN PRN (Reason: constipation) Qty: 3192 RF: 0 Discharge Instructions Instructions: Amoxicillin/Clavulanate Potassium (By mouth), Levofloxacin (By mouth), Diabetic Hypoglycemia (DC) Additional Instructions: Take 50 units of your long acting insulin (basaglar) twice a day until your fasting blood sugar is close to 120, then start taking your old doses. Take 20 units of novolog with meals in addition to the sliding scale (2 extra units for every 50 points that your blood sugar is greater than 150). You should also check your blood sugar at bed time and cover yourself with sliding scale if your sugar is greater than 150. Do not take the standing 20 units of novolog at bedtime unless you are actually eating - only the sliding scale. Return to your old doses of novolog once you are taking 20 mg of prednisone taper. Finish your steroid taper and your antibiotics as prescribed. You are to use 4L of oxygen when you are walking; and 3L at rest. Return to the hospital with any fever, bleeding, chest pain, or worsening shortness of breath. Know signs and symptoms of hypoglycemia and have a plan (exampe: have glucose tablets on you, have orange juice with you, etc). Contact your PCP if you are noticing hypoglycemia to get new insulin orders. Stand Alone Forms: Nursing Discharge Form Referrals: Francesco Pineda [ [facility] STAFF PHYSICIAN] - 02/09/19 10:40 am Activity:: Activity as Tolerated Equipment/Supplies:: nebulizer machine Diet:: carb counting/low sodium Discharge Orders Discharge Orders: Discharge Order (Routine); Ordered 02/01/19 Ordered By: Darling Caban Other Ambulatory Orders: Basic Metabolic Panel (Routine) Timeframe: 1 Week Location: Determined by Patient Ordered By: Darling Caabn Complete Blood Count w/Diff (Routine) Timeframe: 1 Week Location: Determined by Patient Ordered By: Darling Caban Magnesium (Routine) Timeframe: 1 Week Location: Determined by Patient Ordered By: Darling Caban Exam Narrative Exam Narrative: General: Very pleasant middle-aged female, A&Ox3, NAD, speaking fluently, sitting at the side of the bed, looks better HEENT: EOMI, MMM Heart: RRR, no m/r/g Lungs: Improved aeration B - no wheezing, no crackles GI; abdomen is soft, nontender, nondistended Extremities: +1 BLE edema, better ; chronic venous stasis R>L DS: Data Vitals/I&O Vitals and I&O: Vital Signs Temperature 36.7 C 02/01/19 07:30 Temperature Source Tympanic 02/01/19 07:30 Pulse 72 02/01/19 07:30 Pulse Rhythm Regular 01/31/19 19:40 Pulse 70 01/30/19 17:20 Respiratory Rate 20 02/01/19 07:30 Respiratory Effort Non-Labored 01/31/19 19:40 Respiratory Depth Normal 01/31/19 19:40 Respiratory Pattern Normal 01/31/19 19:40 Blood Pressure 161/61 H 02/01/19 07:30 Blood Pressure Mean 71 01/30/19 16:01 Blood Pressure Position Supine 01/30/19 13:24 Pulse Oximetry 93 L 02/01/19 09:45 Oxygen Delivery Method Nasal Cannula 02/01/19 09:45 Oxygen Flow Rate 3 02/01/19 09:45 Pain Level 9 02/01/19 08:43 Comment 01/31/19 15:24 Intake & Output 01/31/19 01/31/19 02/01/19 11:59 23:59 11:59 Intake Total 470.375 / 1695.489 4533.769 / 1639.144 539.167 / 539.167 Output Total 900 / 2600 1700 / 2600 1700 / 1700 Balance -429.625 / -960.856 -531.231 / -960.856 -1160.833 / -1160.833 Weight 105.1 kg 107 kg Intake: IV 110.375 / 439.144 328.769 / 439.144 299.167 / 299.167 Oral 360 / 1200 840 / 1200 240 / 240 Output: Urine 900 / 2600 1700 / 2600 1700 / 1700 Other: Urine Color Straw Yellow Light Dominga Urine Appearance Clear Clear Clear Urine Odor None None Comment hat in toilet Voiding Methods Toilet Toilet Toilet Completed studies during hospitalization [Text1]: CT chest 01/29/19: 1. Bilateral pulmonary infiltrates suspicious for multifocal pneumonia. 2. Mildly enlarged lymph nodes in the mediastinum, which are likely reactive. CT abdomen/pelvis 01/29/19: No evidence of an acute abdomen. No evidence of obstructive uropathy. CXR 02/01/19: Improved aeration of the left lower lobe indicating decreasing pneumonia. Labs on day of discharge: Labs from last 24 hours 02/01/19 02/01/19 02/01/19 05:10 05:10 05:10 WBC 8.98 RBC 4.39 Hgb 12.2 Hct 38.2 MCV 87.0 MCH 27.8 MCHC 31.9 L RDW 13.3 Plt Count 265 MPV 8.6 Immature Gran % 0.2 Neutrophils % 88.7 Lymphocytes % 5.5 Monocytes % 5.5 Eosinophils % 0.1 Basophils % 0.0 Absolute Neutrophils 7.97 H Absolute Lymphocytes 0.49 L Absolute Monocytes 0.49 Absolute Eosinophils 0.01 Absolute Basophils 0.00 Sodium 136 Potassium 5.0 D Chloride 97 L Carbon Dioxide 32.6 H Anion Gap 6.4 BUN 34 H Creatinine 1.14 H Estimated GFR/1.73 m2 48.79 Glucose 259 H D Calcium 8.4 L Magnesium 2.4 Vancomycin Trough 15.3 Preliminary micro results at discharge 01/29/19 14:50 Blood Culture - Preliminary Blood NO GROWTH 48 HOURS 01/29/19 14:38 Blood Culture - Preliminary Blood NO GROWTH 48 HOURS [facility] Medical History Age-related nuclear cataract of both eyes (Resolved 11/12/17) Fracture of left radius and ulna (Resolved) Fracture of left wrist (Resolved 05/28/16) Pap smear of cervix with ASCUS, cannot exclude HGSIL (Inactive 02/23/14) COPD with asthma Charcot's arthropathy Chronic pain Diabetic neuropathy Diabetic retinopathy Essential hypertension Hyperlipidemia Hypothyroidism Obesity (BMI 30-39.9) PVD (peripheral vascular disease) Poorly controlled type 2 diabetes mellitus Surgical History History of cervical biopsy (Resolved) History of unilateral oophorectomy (Resolved) Cervical Conization/LEEP Cervical Procedure Cholecystectomy (11/22/16) Extraction of cataract Oophrectomy, Right Family History Mother Diabetes Essential hypertension Myocardial infarction Vascular disease Asthma Father Diabetes CHF (congestive heart failure) Heart disease Parkinson disease Sister No problems noted. Sister No problems noted. Brother Diabetes Heart disease Brother Diabetes Heart disease Asthma Brother No problems noted. Brother No problems noted. Grandfather Diabetes Vascular disease Grandfather Diabetes Neoplasm Grandmother Dementia Leukemia Neoplasm Grandmother CHF (congestive heart failure) Son No problems noted. Son No problems noted. 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
--- NOTE | 2019-02-01 12:33 | W.INDIABCONS ---
Date of service: 02/01/19 Time of Service: 12:33 Diabetes Inpatient Consult DESCRIPTION/ASSESSMENT: Appreciate diabetes consult for Veena Hassan who is hospitalized with pneumonia requiring steroid administration 30 down to 20mg. A1c 11.9 BMI 40 Blood sugars initially in 600s gradually decreasing to [id number]. Basal insulin initiated at 50 and 60 units daily in addition to resistant insulin correction. Blood sugars corrected well 01/31 to 89 and 124 at hs, overnight blood sugars increased to 278mg/dl. Home diabetes management includes 50u Lantus twice daily; 15u mealtime insulin plus correction. Visited with Veena who states she monitors her blood sugars at times 5-6 times a day; at other times just once a day depending on how she is feeling. She states she does not need support for diabetes management at this time; she has the information she needs. INTERVENTION: Insulin correction appears to work well yesterday eating ~60 grams carbohydrate. Unclear why blood sugars increased overnight except for steroid effect. If she were to be staying as inpatient, suggest adding NPH at time of steroid administration given how sensitive she is to the steroid administration. PLAN Will follow blood sugars if she remains Suggest NPH with steroid administration if she remains She has our number to call if she has questions after discharge
[2019-02-01] MEDS: Bisacodyl 10 MG SUPP PR (12:40)
--- NOTE | 2019-02-01 12:50 | RESPIRATORY ---
Issued home nebulizer machine and oxygen tank from [facility]. Patient did not want instruction on how to use nebulizer stating she's familiar with them. Placed regulator on tank and verified full. Grandson also in there receiving instruction.
--- NOTE | 2019-02-01 15:50 | CMDISCH_ITS ---
- If Service Date Differs Date of service: 02/01/19 Time of Service: 10:47 LACE Index Scoring Tool - Questions: Length of Stay (in days): 3 Acuity (Admit via E.D.?): Yes Comorbidities: PVD, Diabetes w/o Complication, Chronic Pulmonary Disease E.D. Visits: 2 - Answers: Total Score: 13 Risk of Readmission: High Risk Care Management Discharge Reason for Hospitalization: Pneumonia, COPD exacerbation Discharge Plan: Veena is being discharged home with no additional services. She has received a new nwebulizer and a referral has been made to [facility] for Meals on Wheels. She will be transported home with her son via private automobile. Veena will follow up with her PCP and discharge plan of care. Patient/Family Education Needs: Discharge plan, limitations, follow up plan of care and Ask Me Three. Services Needed at Discharge: Home Delivered Meals
== END 2019-02-01 13:42 | disposition home or self-care (01) | DRG 190 ==
LOC: ER 15:13 → MS 16:17 → ICU 01-30 08:13 → MS 02-01 11:29 → ICU 02-02 13:16 → MS 02-02 13:16
PROVIDERS: Internal Medicine; Nurse Practitioner; Nurse Practitioner Family; Admitting Provider Internal Medicine; Emergency Provider Student in an Organized Health Care Education/Training Program; PCP Family Medicine; Visit Provider Family Medicine
DX: J44.0 Chronic obstructive pulmonary disease with (acute) lower respiratory infection (principal); J18.9 Pneumonia, unspecified organism; E11.00 Type 2 diabetes mellitus with hyperosmolarity without nonketotic hyperglycemic-hyperosmolar coma (NKHHC); J96.21 Acute and chronic respiratory failure with hypoxia; N17.9 Acute kidney failure, unspecified; J44.1 Chronic obstructive pulmonary disease with (acute) exacerbation; J45.909 Unspecified asthma, uncomplicated; E11.65 Type 2 diabetes mellitus with hyperglycemia; T38.0X5A Adverse effect of glucocorticoids and synthetic analogues, initial encounter; G47.33 Obstructive sleep apnea (adult) (pediatric); I10 Essential (primary) hypertension; R59.0 Localized enlarged lymph nodes; R60.0 Localized edema; K21.9 Gastro-esophageal reflux disease without esophagitis; M54.5 Low back pain; Z99.81 Dependence on supplemental oxygen; Z87.891 Personal history of nicotine dependence
CPT/HCPCS: 36415; 71250; 80048; 80053; 82805; 82947; 87040; 93005; 94618; 94640; 96365; 96375; 99222; 99232; 99239; 99285; 99291; 71045; 74176; 80202; 81003; 81015; 83605; 83735; 83880; 84100; 84439; 84443; 84484; 85025; 85610; 85730; 93010; 94660; J1644; J1815; J1941; J2543; J2930; J7512; J7620; J8597

== ENCOUNTER 2019-02-09 11:22 | Outpatient (CLI) | payer MEDICARE, MEDICAID, SELFPAY ==
[2019-02-09 13:08] LABS: HCT 39.5 % (36.0-46.0); HGB 12.4 g/dL (12.0-15.5); Mean Corp. HGB Concentration 31.4 g/dL (32.0-36.0); Mean Corpuscular Volume 89.2 fL (80-95); Mean Platelet Volume 8.8 fL (8.0-11.0); Platelet Count 244 x1000/uL (130-400); RBC 4.43 m/cumm (4.00-5.20); RBC Distribution Width 13.5 % (11.7-14.6); White Blood Cell Count 11.49 k/cumm (4.4-10.8)
[2019-02-09 13:12] LABS: Anion Gap 8.5 mmol/L (3-11); BUN 10 mg/dL (7-18); CO2 29.5 mmol/L (21.0-32.0); CREATININE 0.86 mg/dL (0.55-1.02); Calcium 8.1 mg/dL (8.5-10.1); Chloride 104 mmol/L (98-107); Glucose 127 mg/dL (70-100); Magnesium 1.9 mg/dL (1.8-2.4); Potassium 4.6 mmol/L (3.5-5.1); Sodium 142 mmol/L (136-145)
[2019-02-09 13:58] LABS: Absolute Eosinophil Count 0.23 k/cumm (0.0-0.7); Absolute Lymphocyte Count 1.03 k/cumm (1.2-3.4); Absolute Monocyte Count 0.46 k/cumm (0.11-0.7); Absolute Neutrophil Count 9.54 k/cumm (1.2-6.7); Atypical Lymphocytes % 2
[2019-02-09 14:02] LABS: Diff Comment Manual Differential; RBC Morphology Normal
== END 2019-02-09 11:42 ==
PROVIDERS: Internal Medicine; PCP Family Medicine; Visit Provider Family Medicine
DX: J18.9 Pneumonia, unspecified organism; N17.9 Acute kidney failure, unspecified; E11.9 Type 2 diabetes mellitus without complications; I10 Essential (primary) hypertension
CPT/HCPCS: 36415; 80048; 83735; 85025

== ENCOUNTER 2019-06-13 22:38 | Emergency (ER) | payer MEDICARE, MEDICAID, SELFPAY ==
[2019-06-13 22:32] VITALS: BP 170/90; PULSE 108; O2SAT 74
[2019-06-13] MEDS: methylPREDNISolone SUCC 125 MG VIAL IVP (22:40)
[2019-06-13] MEDS: EPINEPHrine 1 MG/10 ML SYR ×8 (22:57→23:51)
--- NOTE | 2019-06-13 23:09 | DI.RAD_ITS ---
EXAM: XR PORTABLE CHEST AP POST LINE INDICATION: resp failure,S/P INTUBATION COMPARISON: XR PORTABLE CHEST AP from 02/01/2019 TECHNIQUE: 2D digital imaging was performed. FINDINGS: Heart size is within normal limits given the technique. There are diffuse interstitial infiltrates p resent. There is blunting of the costophrenic angles which suggest small pleural effusions. There i s an endotracheal tube approximately 3 cm above the pillo. IMPRESSION: Findings suggesting pulmonary edema. Interstitial pneumonia considered less likely.
[2019-06-13] MEDS: Atropine 1 MG/10 ML SYRINGE 3 MG IVP ×5 (23:11→23:38)
[2019-06-13] MEDS: Hydrocortisone SOD SUC. 100 MG VIAL (23:13)
[2019-06-13] MEDS: Calcium Gluconate 4.65 MEQ/10 ML VIAL 4.65 MG (23:16)
[2019-06-13 23:18] LABS: HCO3 (Venous) 20 mmol/L (22-28); O2 Sat (Venous) 82 % (70-80); TCO2 (Venous) 21 mmol/L (22-29); pCO2 (Venous) 80 mm/Hg (34-47); pH (Venous) 7.01 (7.32-7.43); pO2 (Venous) 66 mm/Hg (28-44)
[2019-06-13] MEDS: Normal Saline 1,000 ML 1000 ML IV ×2 (23:20→23:51)
[2019-06-13 23:21] LABS: BE (Venous) -10.9 mmol/L (-3-3)
[2019-06-13 23:22] LABS: Lactate 6.2 mmol/L (0.6-1.4)
[2019-06-13 23:26] LABS: Abs Immature Grans 1.25 k/cumm (0.0-0.09); HCT 29.1 % (36.0-46.0); HGB 9.4 g/dL (12.0-15.5); Mean Corp. HGB Concentration 32.3 g/dL (32.0-36.0); Mean Corpuscular Hemoglobin 28.8 pg (27.0-33.0); Mean Corpuscular Volume 89.3 fL (80-95); Mean Platelet Volume 8.8 fL (8.0-11.0); Platelet Count 300 x1000/uL (130-400); RBC 3.26 m/cumm (4.00-5.20); RBC Distribution Width 13.2 % (11.7-14.6); White Blood Cell Count 16.95 k/cumm (4.4-10.8)
[2019-06-13] MEDS: Amiodarone 150 MG/3 ML VIAL 300 MG IVP (23:26)
[2019-06-13] MEDS: Sodium Bicarbonate 50 MEQ/50 ML SYR IVP (23:30)
--- NOTE | 2019-06-13 23:36 | DI.VRAD_ITS ---
PROCEDURE INFORMATION: Exam: XR Chest, 1 View Exam date and time: 06/13/2019 11:09 PM Clinical history: 58 years old, female; Device placement; Other: Resp failure, S/P intubation TECHNIQUE: Imaging protocol: XR of the chest Views: 1 view. COMPARISON: SC XR PORTABLE CHEST AP 02/01/2019 7:45 AM FINDINGS: Tubes, catheters and devices: Endotracheal tube tip is 3.6 cm above the pillo. Lungs: Lungs have diffuse interstitial process. Pleural space: Unremarkable. No evidence of pneumothorax. Heart/Mediastinum: Unremarkable. Heart size within normal limits for technique. Bones/joints: Unremarkable. IMPRESSION: Pulmonary edema. Dictated and Authenticated by: Pepe Powell MD. Ordering:GANESH Khoury MD
[2019-06-13 23:51] LABS: Absolute Neutrophil Count 8.14 k/cumm (1.2-6.7)
[2019-06-13 23:52] LABS: INR 1.2 (0.9-1.1); PTT Activated 31.6 sec (21.0-31.4); Prothrombin Time 11.9 sec (9.3-11.0)
[2019-06-13 23:53] LABS: Absolute Basophil Count 0.17 k/cumm (0.0-0.2); Absolute Lymphocyte Count 5.93 k/cumm (1.2-3.4)
[2019-06-13 23:54] LABS: Absolute Monocyte Count 2.03 k/cumm (0.11-0.7); Anisocytosis 1+; Diff Comment Manual Differential
[2019-06-14 00:01] LABS: ALT 61 U/L (14-59); AST 112 U/L (15-37); Albumin 0.9 g/dL (3.4-5.0); Alkaline Phosphatase 117 U/L (46-116); Anion Gap 10.6 mmol/L (3-11); BUN 27 mg/dL (7-18); Bilirubin, Total 0.4 mg/dL (0.2-1.0); CO2 23.4 mmol/L (21.0-32.0); CREATININE 1.55 mg/dL (0.55-1.02); Chloride 103 mmol/L (98-107); Estimated GFR 34.22 (mL/min/1.73m2); Glucose 497 mg/dL (70-100); Magnesium 1.9 mg/dL (1.8-2.4); Potassium 3.2 mmol/L (3.5-5.1); Sodium 137 mmol/L (136-145); TSH (W/Ref FT4) 9.57 uIU/mL (0.36-3.74); Total Protein 4.1 g/dL (6.4-8.2)
[2019-06-14 00:03] LABS: Calcium 5.9 mg/dL (8.5-10.1)
[2019-06-14 00:04] LABS: Troponin I 0.34 ng/mL (0.00-0.06)
[2019-06-14 00:23] LABS: FREE T4 0.84 ng/dL (0.76-1.46); NT-proBNP 1260 pg/mL
--- NOTE | 2019-06-14 00:42 | W.ED.PROC ---
Date of service: 06/14/19 Time of Service: 00:42 Procedures Central Line Placement Right Femoral: Prep: gloves Central Line Prep: Chlorhexidine scrub Ultrasound Used for Placement: Yes Central Line Lumen Inserted: single Post Procedure: good blood return, all ports aspirated, flushed, capped and sutured in place with 3-0 nylon Complications: none Additional Comments: Emergent code placement Medical Decision Making I assisted in the care of this patient who presented in critical condition. I placed a left NPA without difficulty and assisted with bag valve ventilation during intubation. I placed a right femoral central line for access and resuscitation. I assisted with ACLS care while Dr. Murphy was speaking with family.
--- NOTE | 2019-06-14 01:34 | ED.GENADUL_ITS ---
Discharge Plan Disposition Patient Disposition: Discharge Details Chief Complaint: RespSymp Clinical Impression: Acute and chronic respiratory failure, COPD exacerbation, Cardiac arrest due to respiratory disorder, Asystole, Congestive heart failure Primary Care Provider: Eran Desir ED Provider: Peng Murphy Home Meds and New Rx's Prescriptions: No Action levofloxacin 500 mg tablet 500 mg PO DAILY Qty: 20 RF: 0 prednisone 10 mg tablet See Rx Instructions .Route .COMPLEX Qty: 63 RF: 0 amlodipine 5 mg tablet 5 mg PO DAILY Qty: 30 RF: 2 Lactobacillus acidophilus Capsule 1,000 mmu cells PO DAILY Qty: 30 RF: 4 Basaglar KwikPen U-100 Insulin 100 unit/mL (3 mL) insulin pen 50 unit subcut BID Qty: 15 RF: 4 Novolog Flexpen U-100 Insulin 100 unit/mL (3 mL) insulin pen 20 unit subcut AC Qty: 15 RF: 4 (DME) pen needle, diabetic [BD Ultra-Fine Mimi Pen Needle] 32 gauge x 5/32 needle 1 ea Miscellaneous QID Qty: 200 RF: 5 (DME) OneTouch Ultra Blue Test Strip strip See Rx Instructions .ROUTE .MEDSUPPLY Qty: 200 RF: 4 prednisone 5 mg tablet 5 mg PO DAILY Qty: 30 RF: 5 fluconazole [Diflucan] 150 mg tablet 150 mg PO ONCE Qty: 1 RF: 1 oxycodone-acetaminophen 10-325 mg tablet 2 tab PO Q6H PRN MDD 8 tabs Qty: 200 RF: 0 (DME) Futuro Restoring Medium 1 EACH misc 1 ea Miscellaneous DAILY Qty: 4 RF: 0 mupirocin 22 GM ointment 0 Topical BID Qty: 22 RF: 3 (DME) blood-glucose meter [OneTouch Ultra2 Meter] 1 EACH kit 1 ea Miscellaneous QID Qty: 1 RF: 0 nystatin 1 EACH powder 1 tsp PO QID Qty: 120 RF: 1 ondansetron HCl 4 MG tablet 4 mg PO Q8H PRN Qty: 12 RF: 3 nystatin (bulk) 1 EACH powder 0 Topical QID Qty: 60 RF: 2 ipratropium-albuterol 0.5 mg-3 mg(2.5 mg base)/3 mL solution for nebulization 3 ml UPD Q6H Qty: 180 RF: 0 levothyroxine [Synthroid] 200 mcg tablet 200 mcg PO DAILY Qty: 90 RF: 3 metoprolol succinate 100 mg tablet extended release 24 hr 100 mg PO DAILY Qty: 90 RF: 4 fluticasone propion-salmeterol [Advair Diskus] 500-50 mcg/dose blister with device 1 inh Inhalation BID Qty: 3 RF: 4 levalbuterol HCl [Xopenex] 1.25 mg/3 mL solution for nebulization 1.25 mg IH Q2H PRN PRN (Reason: shortness of breath or wheezing) Qty: 90 RF: 0 losartan 100 mg tablet 100 mg PO DAILY Qty: 90 RF: 4 levalbuterol tartrate [Xopenex HFA] 45 mcg/actuation HFA aerosol inhaler 1 puff Inhalation Q2H PRN (Reason: shortness of breath or wheezing) Qty: 2 RF: 4 montelukast [Singulair] 10 mg tablet 10 mg PO DAILY Qty: 90 RF: 4 Spiriva with HandiHaler 18 mcg capsule, w/inhalation device 1 cap IH DAILY Qty: 90 RF: 4 hydrocodone-homatropine 5-1.5 mg/5 mL syrup See Rx Instructions PO Q6H MDD 10 ml PRN (Reason: cough) Qty: 300 RF: 0 Fleet Enema 19-7 gram/118 mL enema 197 ml MN TID PRN PRN (Reason: constipation) Qty: 3192 RF: 0 furosemide 40 mg tablet 40 mg PO BID RF: 0 cimetidine 200 MG tablet 400 mg PO BID PRNRF: 0 pantoprazole 40 mg Tablet,Delayed Release (Dr/Ec) 40 mg PO DAILY@0730 Qty: 30 RF: 0 docusate sodium 100 mg capsule 100 mg PO BID Qty: 60 RF: 0 Medical Decision Making Upon my evaluation, this patient had a high probability of imminent or life-t hreatening deterioration, which required my direct attention, intervention, and personal management. I have personally provided 45 minutes of critical care time exclusive of time spent on separately billable procedures. Time includes review of laboratory data, radiology results, management of code, and monitoring of active decompensation. Interventions were performed as documented below. Initial presentation: This is a 58-year-old female with a past medical history of COPD, Charcot's disease, type 2 diabetes, high cholesterol, hypothyroidism, tobacco abuse, chronic pneumonia, who presents today for evaluation of acute respiratory distress. Per family and paramedics patient has been struggling with pneumonia for the last few months, over the last few days she has become more more short of breath with fever and chills, decreasing oxygen saturations and increasing oxygen requirements. She has become more fatigued and more short of breath. Over the last 2 hours she is developed left-sided chest pain, paramedics were called. Upon their arrival she is notably hypoxic with oxygen never going higher than the 70s, and on their arrival she was in the low 60s. She was started on BiPAP, and brought immediately to the ER for further management. Upon arrival: Upon arrival the patient was noted to be in extreme respiratory distress. She is on BiPAP. She was transitioned to 100% FiO2 on BiPAP, she was hypertensive tachycardic and in distress. As orders were being placed patient continued to decompensate, oxygen saturations precipitously declined and the decision was made to emergently intubate. Patient was intubated without significant difficulty. There is notable difficulty achieving access initially, and IO was placed, subsequent access was eventually achieved. The patient was intubated utilizing 100 mg of succinylcholine and 20 mg of etomidate. Shortly after intubation the patient transitioned into PEA and cardiac arrest algorithms were started. During patient stay: After the initial episode of rest the patient went in and out of in a wrist state multiple times. She had 8 episodes of arrest, each by a brief episode of ROSC. During that episode a right femoral central line was placed by Dr. Alejandro Park. Portable chest x-ray showed evidence of severe pulmonary edema in conjunction with appropriate placement of endotracheal tube. The first few cycles of cardiac arrest were secondary to PEA, multiple doses of epinephrine were given. She did have a single episode of V. tach, without a pulse. She was defibrillated with 200 J. Amiodarone was given for 300 mg, calcium gluconate and bicarb were also given, patient subsequently also had multiple episodes of profound bradycardia with hypotension, dirty epi drip was started, and multiple doses of atropine were also given, roughly 6 doses total. Eventually the patient continued to decompensate and was unresponsive to medications. Family was an integral part of the entire resuscitation effort, eventually bedside cardiac echo was performed, patient was noted to be in PEA with only irregular nonorganized quivers of the cardiac muscle. Upon review of this, and the patient's clinical picture family including her ex-, her eldest daughter, her son, and other family members decided in [place] to hold any additional resuscitation efforts. Prior to patient's time of being called she was given her last rights by rapid extractor operator. Time of was 12:08 AM, the medical donation professional Evelio Martínez was contacted, case was discussed with him. He does not see the need for medical autopsy, I to agree with this. I discussed need for autopsy by family and they do not want any autopsy performed. Mae Marie, the patient's daughter personally called [facility], they have taken the patient. Procedure: Endotracheal Intubation Indication: Respiratory Distress A time-out was completed verifying correct patient, procedure, site, positioning, and special equipment if applicable. The patient was placed in a flat position. Sedation was obtained using Etomidate 20mg and paralysis was obtained using succinylcholine 100mg. The patient was ventilated using an ambu bag. The CMAC 4 BLADE was used and inserted into the oropharynx at which time there was a Grade 2 view of the vocal cords. A 7.5-guyanese endotracheal tube was inserted and visualized going through the vocal cords. The stylette was removed. Colorimetric change was visualized on the CO2 meter. Breath sounds were heard in both lung elias equally. The endotracheal tube was placed at 23 cm, measured at the teeth. A chest x-ray was ordered to assess for pneumothorax and verify endotrachealtube placement. No pneumothorax was seen and tube was in good position. Procedure: Intraosseus line Indication: Emergency Vascular Access Skin over the tibia, was cleaned in and prepped in standard method. A 45mm intraosseus line was placed using the EZ -IO method, stylet removed. Bone marrow was aspirated . The line was stabilized to the skin and connector tubing applied. The line was flushed with saline. Estimated Blood Loss: None HPI General Date/Time Provider Initiated Documentation: 06/13/19 22:42 . HPI Narrative: This is a 58-year-old female with a past medical history of COPD, Charcot's disease, type 2 diabetes, high cholesterol, hypothyroidism, tobacco abuse, chronic pneumonia, who presents today for evaluation of acute respiratory distress. Per family and paramedics patient has been struggling with pneumonia for the last few months, over the last few days she has become more more short of breath with fever and chills, decreasing oxygen saturations and increasing oxygen requirements. She has become more fatigued and more short of breath. Over the last 2 hours she is developed left-sided chest pain, paramedics were called. Upon their arrival she is notably hypoxic with oxygen never going higher than the 70s, and on their arrival she was in the low 60s. She was started on BiPAP, and brought immediately to the ER for further management. Patient is unable to answer any questions but does not occasionally. She does admit to chest pain shortness of breath. Limited history secondary to patient's current respiratory distress. No other modifying factors. Related Data Home Medications Medication Instructions Recorded Confirmed Futuro Restoring Medium #4 ea 07/09/16 06/04/19 mupirocin 0 TOPICAL BID #22 g 09/05/16 06/04/19 blood-glucose meter [Onetouch #1 kit 10/20/17 06/04/19 Ultra2] nystatin 1 tsp PO QID #120 ml 11/10/17 06/04/19 nystatin (bulk) 0 TOPICAL QID #60 g 04/10/18 06/04/19 ondansetron HCl 4 mg PO Q8H PRN #12 tab-cap 04/10/18 06/04/19 sodium phosphates [Fleet Enema] 197 ml MN TID PRN PRN #3192 ml 12/14/18 06/04/19 cimetidine 400 mg PO BID PRN 01/29/19 06/04/19 furosemide 40 mg PO BID 01/29/19 06/04/19 docusate sodium 100 mg PO BID #60 cap 02/01/19 06/04/19 ipratropium-albuterol 0.5 mg-3 3 ml UPD Q6H #180 ml 02/01/19 06/04/19 mg(2.5 mg base)/3 mL nebulization soln pantoprazole 40 mg PO DAILY@0730 #30 tab 02/01/19 06/04/19 fluticasone 500 mcg-salmeterol 50 1 inh INHALATION BID #3 each 02/23/19 06/04/19 mcg/dose blistr powdr for inhalation levothyroxine 200 mcg tablet 200 mcg PO DAILY #90 tab-cap 02/23/19 06/04/19 metoprolol succinate 100 mg 100 mg PO DAILY #90 tab 02/23/19 06/04/19 tablet,extended release 24 hr blood sugar diagnostic #200 each 02/26/19 06/04/19 pen needle, diabetic 32 gauge x #200 ea 02/26/19 06/[birth year]/1932 levalbuterol HCl 1.25 mg/3 mL 1.25 mg IH Q2H PRN PRN #90 ml 03/17/19 06/04/19 solution for nebulization levalbuterol tartrate 45 1 puff INHALATION Q2H PRN #2 device 03/17/19 06/04/19 mcg/actuation aerosol inhaler losartan 100 mg tablet 100 mg PO DAILY #90 tab-cap 03/17/19 06/04/19 Lactobacillus acidophilus 1,000 mmu cells PO DAILY #30 cap 04/15/19 06/04/19 amlodipine 5 mg tablet 5 mg PO DAILY #30 tab 04/15/19 06/04/19 insulin aspart U-100 100 unit/mL 20 unit SUBCUT AC #15 syringe 04/15/19 06/04/19 (3 mL) subcutaneous pen insulin glargine 100 unit/mL (3 50 unit SUBCUT BID #15 syringe 04/15/19 06/04/19 mL) subcutaneous pen fluconazole 150 mg tablet 150 mg PO ONCE #1 tab 04/30/19 06/04/19 prednisone 5 mg tablet 5 mg PO DAILY #30 tab 04/30/19 06/04/19 montelukast 10 mg tablet 10 mg PO DAILY #90 tab-cap 05/05/19 06/04/19 tiotropium bromide 18 mcg capsule 1 cap IH DAILY #90 inh 05/05/19 06/04/19 with inhalation device levofloxacin 500 mg tablet 500 mg PO DAILY #20 tab 05/14/19 06/04/19 prednisone 10 mg tablet See Rx Instructions .ROUTE 05/14/19 06/04/19 .COMPLEX #63 tab oxycodone-acetaminophen 10 mg-325 2 tab PO Q6H PRN #200 tab-cap MDD 06/04/19 06/04/19 mg tablet 8 tabs hydrocodone-homatropine 5 mg-1.5 See Rx Instructions PO Q6H PRN 06/08/19 mg/5 mL oral syrup #300 ml MDD 10 ml Previous Rx's Medication Instructions Recorded blood-glucose meter [Onetouch #1 kit 10/20/17 Ultra2] nystatin 1 tsp PO QID #120 ml 11/10/17 ondansetron HCl 4 mg PO Q8H PRN #12 tab-cap 04/10/18 sodium phosphates [Fleet Enema] 197 ml MN TID PRN PRN #3192 ml 12/14/18 docusate sodium 100 mg PO BID #60 cap 02/01/19 ipratropium-albuterol 0.5 mg-3 3 ml UPD Q6H #180 ml 02/01/19 mg(2.5 mg base)/3 mL nebulization soln pantoprazole 40 mg PO DAILY@0730 #30 tab 02/01/19 fluticasone 500 mcg-salmeterol 50 1 inh INHALATION BID #3 each 02/23/19 mcg/dose blistr powdr for inhalation levothyroxine 200 mcg tablet 200 mcg PO DAILY #90 tab-cap 02/23/19 metoprolol succinate 100 mg 100 mg PO DAILY #90 tab 02/23/19 tablet,extended release 24 hr blood sugar diagnostic #200 each 02/26/19 pen needle, diabetic 32 gauge x #200 ea 02/26/19 levalbuterol HCl 1.25 mg/3 mL 1.25 mg IH Q2H PRN PRN #90 ml 03/17/19 solution for nebulization levalbuterol tartrate 45 1 puff INHALATION Q2H PRN #2 device 03/17/19 mcg/actuation aerosol inhaler losartan 100 mg tablet 100 mg PO DAILY #90 tab-cap 03/17/19 Lactobacillus acidophilus 1,000 mmu cells PO DAILY #30 cap 04/15/19 amlodipine 5 mg tablet 5 mg PO DAILY #30 tab 04/15/19 insulin aspart U-100 100 unit/mL 20 unit SUBCUT AC #15 syringe 04/15/19 (3 mL) subcutaneous pen insulin glargine 100 unit/mL (3 50 unit SUBCUT BID #15 syringe 04/15/19 mL) subcutaneous pen fluconazole 150 mg tablet 150 mg PO ONCE #1 tab 04/30/19 prednisone 5 mg tablet 5 mg PO DAILY #30 tab 04/30/19 montelukast 10 mg tablet 10 mg PO DAILY #90 tab-cap 05/05/19 tiotropium bromide 18 mcg capsule 1 cap IH DAILY #90 inh 05/05/19 with inhalation device levofloxacin 500 mg tablet 500 mg PO DAILY #20 tab 05/14/19 prednisone 10 mg tablet See Rx Instructions .ROUTE 05/14/19 .COMPLEX #63 tab oxycodone-acetaminophen 10 mg-325 2 tab PO Q6H PRN #200 tab-cap MDD 06/04/19 mg tablet 8 tabs hydrocodone-homatropine 5 mg-1.5 See Rx Instructions PO Q6H PRN 06/08/19 mg/5 mL oral syrup #300 ml MDD 10 ml Allergies Allergy/AdvReac Type Severity Reaction Status Date / Time cefaclor Allergy Wheezing Verified 06/04/19 10:30 lovastatin Allergy Verified 06/04/19 10:30 shellfish derived Allergy Verified 06/04/19 10:30 budesonide [From Symbicort] AdvReac Severe Verified 06/04/19 10:30 clindamycin AdvReac Severe SWELLING, Verified 06/04/19 10:30 GI UPSET, BLOATING doxycycline AdvReac Severe Nausea, Verified 06/04/19 10:30 vomiting, diarrhea formoterol fumarate AdvReac Severe Verified 06/04/19 10:30 [From Symbicort] ibuprofen AdvReac Severe Gastro Verified 06/04/19 10:30 upset, bleeding simvastatin AdvReac Severe MYALGIAS Verified 06/04/19 10:30 gabapentin AdvReac Intermediate Drowsiness Verified 06/04/19 10:30 adhesive AdvReac Skin Rash Verified 06/04/19 10:30 cyclobenzaprine AdvReac Verified 06/04/19 10:30 sulfamethoxazole AdvReac EDEMA Verified 06/04/19 10:30 [From Bactrim] trimethoprim [From Bactrim] AdvReac EDEMA Verified 06/04/19 10:30 General LIVIA: 3 Review of Systems Unobtainable due to mental status [facility] Medical History (Updated 04/30/19 @ 15:56 by Eran Desir MD) Acute and chronic respiratory failure with hypoxia (Resolved) Age-related nuclear cataract of both eyes (Resolved 11/12/17) Charcot's arthropathy Chronic pain COPD exacerbation (Acute) continue nebs COPD with asthma Diabetic neuropathy Diabetic retinopathy Essential hypertension Fracture of left radius and ulna (Resolved) Fracture of left wrist (Resolved 05/28/16) Hyperlipidemia Hyperosmolar non-ketotic state in patient with type 2 diabetes mellitus (Resolved) Hypothyroidism Obesity (BMI 30-39.9) Pap smear of cervix with ASCUS, cannot exclude HGSIL (Inactive 02/23/14) Pap smear of cervix with ASCUS, cannot exclude HGSIL (Resolved 02/23/14) Pneumonia (Resolved) Poorly controlled type 2 diabetes mellitus PVD (peripheral vascular disease) Steroid-induced hyperglycemia (Resolved) Surgical History (Updated 02/09/19 @ 11:56 by Eran Desir MD) Cervical Conization/LEEP 04/06/14; [facility] Cervical Procedure bx- neg for dysplasia Cholecystectomy (11/22/16) DR. CROUCH Extraction of cataract History of cervical biopsy (Resolved) History of unilateral oophorectomy (Resolved) Oophrectomy, Right S/P LEEP (status post loop electrosurgical excision procedure) (Resolved) Family History (Updated 04/16/19 @ 08:43 by Ravi Elias) Mother Diabetes Essential hypertension Myocardial infarction Vascular disease Asthma HEAVY SMOKER Father Diabetes CHF (congestive heart failure) Heart disease Parkinson disease Sister , MVA at age 4. No problems noted. Sister No problems noted. Brother Diabetes Heart disease Brother Diabetes Heart disease Asthma Brother No problems noted. Brother No problems noted. Maternal Grandfather Diabetes Vascular disease Paternal Grandfather Diabetes Cancer Maternal Grandmother Dementia Leukemia Thyroid cancer Paternal Grandmother CHF (congestive heart failure) Son No problems noted. Son No problems noted. Daughter Diabetes Daughter Diabetes Maternal Aunt , STROKE OR ID at age 87. Myocardial infarction Stroke Social History (Updated 04/16/19 @ 08:41 by Ravi Elias) Smoking/Tobacco Use Status: Former Tobacco Use Quit Date: 08/18/15 Alcohol Intake: never Drug use: Never Substance use type: does not use Caregiver/Support person: No Housing: apartment Pets and animals: Yes Pets and animals: cat(s) Sexually active: No Current gender identity: decline to answer What is your relationship status?: How often do you talk on the phone with friends or family?: decline to answer How often do you get together with friends or relatives?: decline to answer How often do you attend rastafari or christian services?: decline to answer Do you belong to any clubs or organized social groups?: decline to answer Panel score (0-1 are the most socially isolated patients): 0 What type of physical activity do you participate in: decline to answer Duration: decline to answer Frequency: decline to answer Kati/Presybeterian: Jewish Special kati needs: No Seatbelt use: always Drive intox or ride w/intox cmv driver: No Do you feel safe at home: Yes Do you feel safe in your relationship?: Yes Additional Social history: Hard of hearing (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 No focal deficit. BACK: no obvious trauma NEURO: Gag intact, notable respiratory extremis causing she is able to answer some yes or no questions, spontaneous movement of all extremities. No focal deficit Course Vital Signs Vital signs: Respiratory End-tidal CO2 40 06/13/19 22:40 Lab/Test Results Lab/Test Results: Laboratory Tests Range/Units 06/13/19 06/13/19 06/13/19 23:14 23:15 23:15 WBC (4.4-10.8) k/cumm 16.95 H RBC (4.00-5.20) m/cumm 3.26 L Hgb (12.0-15.5) g/dL 9.4 L Hct (36.0-46.0) % 29.1 L MCV (80-95) fL 89.3 MCH (27.0-33.0) pg 28.8 MCHC (32.0-36.0) g/dL 32.3 RDW (11.7-14.6) % 13.2 Plt Count (130-400) x1000/uL 300 MPV (8.0-11.0) fL 8.8 Immature Gran % See Differential Neutrophils % 46.0 Band Neutrophils % % 2.0 Lymphocytes % 35.0 Monocytes % 12.0 Eosinophils % 0.0 Basophils % 1.0 Metamyelocytes % % 2.0 Myelocytes % % 1.0 Absolute Neutrophils (1.2-6.7) k/cumm 8.14 H Absolute Lymphocytes (1.2-3.4) k/cumm 5.93 H Absolute Monocytes (0.11-0.7) k/cumm 2.03 H Absolute Eosinophils (0.0-0.7) k/cumm 0.00 Absolute Basophils (0.0-0.2) k/cumm 0.17 Differential Comment Manual differential RBC Morphology See below Anisocytosis 1+ PT (9.3-11.0) sec INR (0.9-1.1) APTT (21.0-31.4) sec VBG pH (7.32-7.43) 7.01 L VBG pCO2 (34-47) mm/Hg 80 H VBG pO2 (28-44) mm/Hg 66 H VBG HCO3 (22-28) mmol/L 20 L VBG Total CO2 (22-29) mmol/L 21 L VBG O2 Saturation (70-80) % 82 H VBG Base Excess (-3-3) mmol/L -10.9 L Sodium (136-145) mmol/L Potassium (3.5-5.1) mmol/L Chloride (98-107) mmol/L Carbon Dioxide (21.0-32.0) mmol/L Anion Gap (3-11) mmol/L BUN (7-18) mg/dL Creatinine (0.55-1.02) mg/dL Estimated GFR/1.73 m2 (mL/min/1.73m2) Glucose (70-100) mg/dL Lactate (0.6-1.4) mmol/L 6.2 H* Calcium (8.5-10.1) mg/dL Magnesium (1.8-2.4) mg/dL Total Bilirubin (0.2-1.0) mg/dL AST (15-37) U/L ALT (14-59) U/L Alkaline Phosphatase (46-116) U/L Troponin I (0.00-0.06) ng/mL NT-Pro-B Natriuret Pep ( - 299) pg/mL Total Protein (6.4-8.2) g/dL Albumin (3.4-5.0) g/dL TSH (0.36-3.74) uIU/mL Free T4 (0.76-1.46) ng/dL Range/Units 06/13/19 06/13/19 06/14/19 23:30 23:30 01:42 WBC (4.4-10.8) k/cumm RBC (4.00-5.20) m/cumm Hgb (12.0-15.5) g/dL Hct (36.0-46.0) % MCV (80-95) fL MCH (27.0-33.0) pg MCHC (32.0-36.0) g/dL RDW (11.7-14.6) % Plt Count (130-400) x1000/uL MPV (8.0-11.0) fL Immature Gran % Neutrophils % Band Neutrophils % % Lymphocytes % Monocytes % Eosinophils % Basophils % Metamyelocytes % % Myelocytes % % Absolute Neutrophils (1.2-6.7) k/cumm Absolute Lymphocytes (1.2-3.4) k/cumm Absolute Monocytes (0.11-0.7) k/cumm Absolute Eosinophils (0.0-0.7) k/cumm Absolute Basophils (0.0-0.2) k/cumm Differential Comment RBC Morphology Anisocytosis PT (9.3-11.0) sec 11.9 H INR (0.9-1.1) 1.2 H APTT (21.0-31.4) sec 31.6 H VBG pH (7.32-7.43) VBG pCO2 (34-47) mm/Hg VBG pO2 (28-44) mm/Hg VBG HCO3 (22-28) mmol/L VBG Total CO2 (22-29) mmol/L VBG O2 Saturation (70-80) % VBG Base Excess (-3-3) mmol/L Sodium (136-145) mmol/L 137 Potassium (3.5-5.1) mmol/L 3.2 L Chloride (98-107) mmol/L 103 Carbon Dioxide (21.0-32.0) mmol/L 23.4 Anion Gap (3-11) mmol/L 10.6 BUN (7-18) mg/dL 27 H Creatinine (0.55-1.02) mg/dL 1.55 H Estimated GFR/1.73 m2 (mL/min/1.73m2) 34.22 Glucose (70-100) mg/dL 497 H Lactate (0.6-1.4) mmol/L Calcium (8.5-10.1) mg/dL 5.9 L* Magnesium (1.8-2.4) mg/dL 1.9 Total Bilirubin (0.2-1.0) mg/dL 0.4 AST (15-37) U/L 112 H ALT (14-59) U/L 61 H Alkaline Phosphatase (46-116) U/L 117 H Troponin I (0.00-0.06) ng/mL 0.34 H* Cancelled NT-Pro-B Natriuret Pep ( - 299) pg/mL 1260 H Total Protein (6.4-8.2) g/dL 4.1 L Albumin (3.4-5.0) g/dL 0.9 L TSH (0.36-3.74) uIU/mL 9.57 H Free T4 (0.76-1.46) ng/dL 0.84 Procedures Intubation Time out performed: Yes sedative: Etomidate paralytic: Succinylcholine Laryngoscope: Yvan ET Tube Size: 7.5 ET Tube Uncuffed: Yes Tube Secured Location: lips Tube Placement Confirmation: visualized tube passing through cords and equal breath sounds bilaterally
--- NOTE | 2019-06-15 15:09 | NUR.NOTE ---
Nursing Note: Pharmacy, [facility] called asking about meds given and the documentation of them. I printed the Visit Summary, MD report, and print screens of the orders for her. Alesha Orlando.
== END 2019-06-14 02:00 | disposition expired ==
PROVIDERS: Emergency Provider Student in an Organized Health Care Education/Training Program; PCP Family Medicine
DX: J96.20 Acute and chronic respiratory failure, unspecified whether with hypoxia or hypercapnia (principal); J44.1 Chronic obstructive pulmonary disease with (acute) exacerbation; I46.8 Cardiac arrest due to other underlying condition; I50.9 Heart failure, unspecified; I46.2 Cardiac arrest due to underlying cardiac condition; E11.49 Type 2 diabetes mellitus with other diabetic neurological complication; I11.0 Hypertensive heart disease with heart failure; F17.210 Nicotine dependence, cigarettes, uncomplicated
CPT/HCPCS: 36415; 36556; 71045; 80053; 82805; 87040; 96361; 96374; 96375; 99291; 83605; 83735; 83880; 84439; 84443; 84484; 85025; 85610; 85730; J0610; J1720; J2930; J3490